=== PATIENT | female | born 1975 | race Caucasian/White ===

== ENCOUNTER 2023-07-15 11:20 | Outpatient (AMB) | payer OTHER, SELFPAY ==
--- NOTE | 2023-07-15 11:26 | MHC.OFFVIS ---
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 States numbness increases and interferes with her sleep. Symptoms started about 4 yrs ago but has worsen in the last 3 weeks. Patient has tried CTS injection about 4 years with good results. States she h ad a brace but it was worn out. No EMG done. Allergies No Known Allergies Allergy (Verified 07/15/23 11:31) Medication List - Last Reconciled 07/15/23 by Glenna Ferguson MD No Known Home Meds HPI HPI Comments History of Present Illness Details At least 4 years. worse numbness on 2nd-4th fingers. No numbness on 5th digit. She also has neck pain, been going to chiropractor on/off. 2 weeks ago, she had severe pain on right hand and at same time she also had severe neck pain. It resolved by going to chiropractor and rest. Treatment done so far: Tried brace long time ago, does not have any NSAIDs - Motrin therapy - none injection - long time ago, 5 years ago, Dr. Kaur, worked for a long time surgery - none [facility] Medical History (Updated 07/15/23 @ 11:48 by Glenna Ferguson MD) Carpal tunnel syndrome of right wrist Social History (Updated 07/15/23 @ 11:31 by Katrina Samuels [facility]) Current occupational status: employed Current occupation: rt hand/ packing Review of Systems Const All systems reviewed & are unremarkable except as noted in HPI and below Physical Exam Vital Signs: BMI result Body Mass Index 26.4 Constitutional: Patient appears to be in no acute distress, well nourished and well developed. MSK: Inspection reveals appropriate head and neck positioning. No pain with palpation over the neck musculature. Cervical ROM was full. Spurling's sign negative. Bilateral shoulder ROM WNL. No ligamentous laxity or crepitance. No increased effusion. Hawkin's test is negative. No joint effusion noted. No deformity noted. No intrinsic hand weakness noted. No atrophy noted. Rafal test negative. Carpal compression test positive right wrist. Tinel sign positive right wrist. Strength is 5/5 in all muscle groups tested. No increased tone noted. Neurological: Neurologic examination of the upper and lower extremities was nonfocal with intact sensation, muscle stretch reflexes and without focal motor deficits . Goodson?s negative bilaterally Gait is non-antalgic without loss of balance. Results Reviewed Results Reviewed: No past imaging records or available for review Assessment & Plan Assessment & Plan (1) Carpal tunnel syndrome of right wrist: Code(s): G56.01 - Carpal tunnel syndrome, right upper limb Plan: Her symptoms are suggestive of Carpal Tunnel Syndrome. No EMG done yet. Prior to any further procedures such as injection or consideration of surgery, it would be prudent to do NCS/EMG. Patient is eager to proceed. We will schedule. In the meantime, we will provide wrist splint for use at night. Plan Assessment and plan discussed with patent, and patient was agreeable. All questions were answered thoroughly. Orders: Orders NE electromyogram (EMG) Today G56.01 - Carpal tunnel syndrome, right upper limb NE nerve conduction velocity Today G56.01 - Carpal tunnel syndrome, right upper limb Coding Level of Care Code New Pt Level 3 (57846) Diagnoses Carpal tunnel syndrome of right wrist G56.01
[2023-07-15 11:31] VITALS: BMI 26.4
== END 2023-07-15 12:09 | disposition home or self-care (01) ==
PROVIDERS: PCP Nurse Practitioner Family; Visit Provider Physical Medicine & Rehabilitation
DX: G56.01 Carpal tunnel syndrome, right upper limb (principal)
CPT/HCPCS: 99203

== ENCOUNTER → 2023-07-15 11:20 | Outpatient (BNVA) | payer OTHER, SELFPAY | PROVIDERS: PCP Nurse Practitioner Family; Visit Provider Physical Medicine & Rehabilitation ==

== ENCOUNTER 2023-08-13 09:54 | Outpatient (REF) | payer OTHER, SELFPAY ==
--- NOTE | 2023-08-13 09:59 | EMG_ITS ---
Chief complaint: Was having right hand pain/numbness. It has already gotten better with use of wrist splints at night. Reason for referral: Evaluate for Carpal Tunnel Syndrome Procedure done: Right upper extremity NCS/EMG Precautions and/or limitations: None The limb temperature was monitored continuously and remained between 32-36 degrees C during the performance of the NCS. Nerve Conduction Studies Anti Sensory Summary Table ?Stim Site NR Onset (ms) Norm Onset (ms) Peak (ms) Norm Peak (ms) O-P Amp (?V) Norm O-P Amp Site1 Site2 Delta-0 (ms) Dist (cm) Don (m/s) Norm Don (m/s) Right Median Anti Sensory (2nd Digit) Wrist ? 3.9 4.9 <3.6 10.4 >10 Wrist 2nd Digit 3.9 14.0 36 Right Radial Anti Sensory (Thumb) Forearm ? 1.7 2.1 <3.1 11.6 Forearm Thumb 1.7 0.0 Right Ulnar Anti Sensory (5th Digit) Wrist ? 2.2 2.8 <3.7 40.8 >15.0 Wrist 5th Digit 2.2 14.0 64 Motor Summary Table ?Stim Site NR Onset (ms) Norm Onset (ms) O-P Amp (mV) Norm O-P Amp iAmp (mV) Amp (1st) (%) Site1 Site2 Delta-0 (ms) Dist (cm) Don (m/s) Norm Don (m/s) Right Median Motor (Abd Poll Brev) Wrist ? 6.2 <3.9 3.3 >4.5 4.1 100.0 Elbow Wrist 1.6 17.5 109 >45 Elbow ? 7.8 3.1 3.9 93.9 Right Ulnar Motor (Abd Dig Minimi) Wrist ? 2.5 <3.0 11.1 >5 13.5 100.0 B Elbow Wrist 2.7 16.0 59 >45 B Elbow ? 5.2 10.2 12.8 91.9 A Elbow B Elbow 1.4 10.0 71 >45 A Elbow ? 6.6 10.2 12.9 91.9 EMG ?Side Muscle Nerve Root Ins Act Fibs Psw Amp Dur Poly Recrt Int Pat Comment Right 1stDorInt Ulnar C8-T1 Nml Nml Nml Nml Nml 0 Nml Complete Right FlexCarRad Median C6-7 Nml Nml Nml Nml Nml 0 Nml Complete Right Biceps Musculocut C5-6 Nml Nml Nml Nml Nml 0 Nml Complete Right Triceps Radial C6-7-8 Nml Nml Nml Nml Nml 0 Nml Complete Right Deltoid Axillary C5-6 Nml Nml Nml Nml Nml 0 Nml Complete FINDINGS: Right median motor nerve showed prolonged distal latency, small amplitude and normal conduction velocity. Right median sensory nerve showed prolonged peak latency. All other nerves tested were within normal. Concentric needle EMG was performed in selected muscles of the right upper extremity. Study did not reveal signs of electric abnormalities as shown in the table below. IMPRESSION: 1. This is an abnormal study. 2. There is electrodiagnostic evidence for right moderate-severe median neuropathy at the wrists, consistent with carpal tunnel syndrome. 3. There is no electrodiagnostic evidence for ulnar neuropathy, brachial plexopathy, or cervical radiculopathy. CLINICAL COMMENT: Since she is already feeling better with the use of wrist splints, she would like to observe further before deciding on surgery versus injection. She will call our physiatry office when needed. Thank you for your kind referral. Glenna Ferguson MD, [place] Board Certified, [place] Board of Physical Medicine and Rehabilitation (ABPMR) Board Certified, [place] Board of Electrodiagnostic Medicine (ABEM) [place] [id number] [facility]
== END 2023-08-13 09:55 | disposition home or self-care (01) ==
LOC: HO.NEURO 09:54
PROVIDERS: PCP Internal Medicine; Visit Provider Physical Medicine & Rehabilitation
DX: G56.01 Carpal tunnel syndrome, right upper limb (principal)
CPT/HCPCS: 95886; 95909

== ENCOUNTER → 2023-08-13 09:59 | Outpatient (BNV) | payer OTHER, SELFPAY | PROVIDERS: PCP Internal Medicine; Visit Provider Physical Medicine & Rehabilitation | DX: G56.13 Other lesions of median nerve, bilateral upper limbs (principal); G56.03 Carpal tunnel syndrome, bilateral upper limbs | CPT/HCPCS: 95886; 95909 ==

== ENCOUNTER 2023-08-30 09:43 | Outpatient (AMB) | payer OTHER, SELFPAY ==
--- NOTE | 2023-08-30 11:27 | MHC.OFFWIV ---
Intake Vital Signs 08/30/23 11:33 Weight 138 lb 4 oz BP 128/72 Blood Pressure Location Lt brachial Position Sitting Pulse 68 Pulse Source Pulse Oximeter Temp 98.1 F Temp Source Oral Pulse Oximetry (%) 98 Oxygen Delivery Method Room Air Intake Visit Reasons: EP, sore throat, ear pain (413- Allergies No Known Allergies Allergy (Verified 07/15/23 11:31) Medication List - Last Reconciled 08/30/23 by Abiel Fleming MD azithromycin (Zithromax) take 500 mg today (day 1), then 250 mg for 4 days (days 2-5) PO HPI EP, sore throat, ear pain ([phone] HPI Details Patient presents for a sick visit. Reporting symptoms of sinus congestion, sore throat and difficulty swallowing. Low-grade fever. No family member is sick. No recent travel. Patient reports symptoms of malaise and fatigue. [facility] Medical History Carpal tunnel syndrome of right wrist Social History Current occupational status: employed Current occupation: rt hand/ packing Physical Exam Vital Signs: Last Vital Signs Temp 98.1 F 08/30/23 11:33 Pulse 68 08/30/23 11:33 BP 128/72 08/30/23 11:33 Pulse Ox 98 08/30/23 11:33 Oxygen Delivery Method Room Air 08/30/23 11:33 Const General: cooperative and healthy appearing Nutritional Appearance: well nourished Orientation/consciousness: patient oriented x3 Limitations: no limitations HEENT Head: Yes normal to inspection Eyes General: appearance normal, both eyes and all related structures Neck Neck: Yes normal visual inspection Chest Chest palpation & inspection: normal palpation of entire chest wall Resp Effort & Inspection: normal respiratory effort Neuro General: patient oriented x3 Results AMB Rapid Strep AMB Rapid Strep Negative Last Edit by ASHLEY Jiménez on 08/30/23 11:41 Results Reviewed Results Reviewed: Laboratory Last Values Strep Scn Rapid Clinic Negative 08/30/23 11:37 Assessment & Plan Assessment & Plan (1) Upper respiratory tract infection: Code(s): J06.9 - Acute upper respiratory infection, unspecified Qualifiers: URI type: unspecified viral URI Qualified Code(s): J06.9 - Acute upper respiratory infection, unspecified Plan: Antibiotics ordered. Increase fluid intake. Tylenol for aches and pains. If symptoms worsen, follow-up here for a recheck. Orders: Orders AMB Rapid Strep Screen Today Z13.9 - Encounter for screening, unspecified PHILIPP Juarez Medications: New azithromycin (Zithromax) take 500 mg today (day 1), then 250 mg for 4 days (days 2-5) PO 6 tabs 0RF Abiel Fleming MD Coding Level of Care Code Est Pt Level 3 (01820) Diagnoses Viral upper respiratory tract infection J06.9 URI type: unspecified viral URI
[2023-08-30 11:33] VITALS: BP 128/72; PULSE 68; TEMP 36.7; O2SAT 98
== END 2023-08-30 12:13 | disposition home or self-care (01) ==
PROVIDERS: PCP Internal Medicine; Visit Provider Internal Medicine
DX: Z13.9 Encounter for screening, unspecified (principal); J06.9 Acute upper respiratory infection, unspecified
CPT/HCPCS: 87880; 99213

== ENCOUNTER 2025-06-19 07:07 | Outpatient (AMB) | payer BC, SELFPAY ==
--- OUTSIDE RECORDS SUMMARY | 2025-06-19 07:09 | XMS_ITS | Clinical Summary ---
Author Organization [facility] Address [address] [phone] Phone Care Team Providers Care [employer] Name Role Phone Unavailable Primary Care Provider Unavailabl e Medications ibuprofen (MOTRIN IB) 200 MG tablet Take 1 tablet by mouth every 6 (six) hours as needed. Active albuterol (PROAIR HFA) 90 mcg/actuation inhaler 2 puffs as needed Inhalation every 4 hrs PRN 7 Active tiZANidine (ZANAFLEX) 4 MG tablet 1 tablet as needed Orally HS PRN headache 7 Active POLYETHYLENE GLYCOL 3350 (MIRALAX ORAL) daily Orally Once daily PRN Active DOCUSATE SODIUM (STOOL SOFTENER ORAL) 1 capsule as needed Orally 1 EVERY 2 DAYS Active Family History Medical History Relation Comments Ulcers Brother 1 Brain tumor Brother 2 Diabetes mellitus Mother Liver disease Mother Other Mother joint/muscle pro blems Cancer Sibling Relation Status Comments Brother 1 Alive Brother 2 Mother Alive Sibling Social History Tobacco Use Types Packs/Day Years Used Date Smoking Tobacco: Never Assessed Education Answer Date Recorded Are you interested in more education? Not on luis miguel e 03/12/2023 Are you concerned about learning? Not on file 03/12/2023 No 03/12/2023 No 03/12/2023 Digital Access Answer Date Recorded No 04/12/2023 No 04/12/2023 Reliable internet access at home? Not on file 04/12/2023 Device with a working camera? Not on file Comments Unknown Sex and Gender Information Value Date Recorded Sex Assigned at Not on file Legal Sex Female 9:31 PM EDT Gender Identity Not on file Sexual Orientation Not on file Last Filed Vital Signs Vital Sign Reading Time Taken Comments Blood Pressure 118/80 03/23/2017 10:13 AM EDT Pulse 80 03/23/2017 10:13 AM EDT Temperature 36.6 C (97.9 F) 03/23/2017 10:13 AM EDT Respiratory Rate 16 03/23/2017 10:13 AM EDT Oxygen Saturation - - Inhaled Oxygen Concentration - - Weight 61.4 kg (135 lb 6.4 oz) 03/23/2017 10:13 AM EDT Height 151.1 cm (4' 11.5 ) 03/23/2017 10:13 AM E DT Body Mass Index 26.89 03/23/2017 10:13 AM EDT Plan of Treatment Health Maintenance Due Date Last Done Comments Adult Td,Tdap Booster 1973 DEPRESSION SCREENING 1985 SMOKING Hx and SMOKELESS TOBACCO SCREENING 1986 HEPATITIS C SCREENING 1991 HIV ONE-TIME SCREENING (18-6 5 YEARS) 1991 PAP SMEAR 1994 COLOGUARD 2018 FIT TEST 2018 FOBT 2018 SIGMOIDOSCOPY 2018 VIRTUAL COLONOSCOPY 2018 LIPID PANEL 01/12/2019 01/12/2014 MAMMOGRAM 12/10/2019 12/10/2017, 02/14/2016 PNEUMOCOCCAL VACCINES (50+ years) (1 of 1 - PCV) 2023 ZOSTER VACCINES (1 of 2) 2023 COVID-19 VACCINE ( - 2023-2 5 season) 2024 COLONOSCOPY 08/09/2025 08/09/2015 COLORECTAL CANCER SCREENING 08/09/2025 HEPATITIS A VACCINES Aged Out No long er eligible based on patient's age to complete this topic HIB VACCINES Aged Out No longer eligi ble based on patient's age to complete this topic MENINGOCOCCAL VACCINES (ACWY) Aged Out No longer eligible based on patient's age to complete this topic MENINGOCOCCAL VACCINES (B) Aged Out N o longer eligible based on patient's age to complete this topic Medical Devices Not on file Procedures Procedure Name Priority Date/Time Associated Diagnosis Comments HM MAMMOGRAPHY Routine 12/10/2017 OUTSIDE LDL Routine 01/12/2014 from Last 3 Months or Most Recently Relevant to Health Maintenance Results * MAMMOGRAPHY FOR RESULT ENTRY ONLY (12/10/2017) us Historical Provider HEALTH MAINTENANCE Final Result * Outside LDL (01/12/2014) LDL - External 76 50 - 250 mg/ml us Historical Provider LAB BLOOD ORDERABLES Lian l Result from Last 3 Months or Most Recently Relevant to Health Maintenance Additional Source Comments The information contained in this document represents components of the legal health record. It is not the complete legal health record.[facility]
[2025-06-19 07:17] VITALS: BP 122/80; PULSE 76; TEMP 36.7; O2SAT 99; BMI 27.7
--- NOTE | 2025-06-19 07:17 | AM.OFFWIN_ITS ---
Intake Vital Signs 06/19/25 07:17 Height 5 ft Weight 142 lb BMI 27.7 BP 122/80 Blood Pressure Location Rt brachial Position Sitting Pulse 76 Pulse Source Pulse Oximeter Temp 98.0 F Temp Source Oral Pulse Oximetry (%) 99 Oxygen Delivery Method Room Air Intake Visit Reasons: EP-lt ear infection Intake Note: presents with a painful, swollen, hot and red left ear s/p piercing 5 days ago Allergies No Known Allergies Allergy (Verified 06/19/25 07:19) Do you need a note to return to daycare/school/sports/work: Yes HPI HPI Comments History of Present Illness Details History - The patient is a 49-year-old female pr esenting with a left ear lobe infection. - The infection began 4 days ago after e ar piercing. - Symptoms include pain, swelling, and w armth. - No fever or drainage reported. - Daily cleaning of the piercing site moreau s been maintained. - The piercing was performed in [place] ; no follow-up with the shop has occurred. - last tdap 02/03/24 per records Physical Exam General: Cooperative, healthy appearing, comfortable, no acute distress and well developed Orientation: Patient oriented x3 Limitations: No limitations Head: Normal to inspection Ears: Hearing grossly normal bilaterally, left ear helix has piercing in place with purulent drainage, surrounding erythema, edema and warmth Nose: Normal External nose present Face and sinus: Normal facial exam Mouth: normal, moist oral mucosa Eyes: Appearance normal, both eyes and all related structures Neck: Normal visual inspection and Yes full ROM Respiratory: Normal respiratory effort and able to speak in complete sentences. Skin: no rashes or lesions noted Neuro: Patient oriented x3 Extremities: moving all extremities normally [facility] Medical History Carpal tunnel syndrome of right wrist Social History Current occupational status: employed Current occupation: rt hand/ packing Review of Systems Const All systems reviewed & are unremarkable except as noted in HPI and below Physical Exam Vital Signs: Last Vital Signs Temp 98.0 F 06/19/25 07:17 Pulse 76 06/19/25 07:17 BP 122/80 06/19/25 07:17 Pulse Ox 99 06/19/25 07:17 Oxygen Delivery Method Room Air 06/19/25 07:17 BMI result Body Mass Index 27.7 Office Procedures AMB Foreign Body Removal Details: removed ear piercing from helix of left ear, scant purulence and some serousanginous fluid noted, cleaned with alcohol wipes Foreign Body Removal Simple: [id number], simple Procedure code (CPT) selection complete Assessment & Plan Assessment & Plan (1) Perichondritis of left ear: Code(s): H61.002 - Unspecified perichondritis of left external ear Plan: Plan Patient was informed and verbally consented to the use of an ambient scribe for clinic note documentation during this visit - removed the piercing. - Sent Cipro 500mg BID x10 days, counseled patient that she can stop this medica tion after 7 days if the infection has cleared up. - sent a wound culture - keep it clean using alcohol wipes several times daily - counseled patient on the small chance of endocarditis developing from this piercing infection, gave her the signs and symptoms and told her that while the likelihood is low, there is a chance and she should be aware of the signs and symptoms and go to the emergency department if she notices these developing, ISAURA. - Tetanus is up to date Orders: Orders AMB Removal of foreign body Today H61.002 - Unspecified perichondritis of left external ear Routine Culture w Gram Stain Today H61.002 - Unspecified perichondritis of left external ear Medications: New ciprofloxacin HCl 500 mg (2 x 250 mg) PO Q12H 40 tabs 0RF 10 days Coding Level of Care Code New Pt Level 4 (98591) Diagnoses Perichondritis of left ear H61.002 CPT Codes Details - Foreign body simple: [id number], simple ([id number])
== END 2025-06-19 08:02 | disposition home or self-care (01) ==
PROVIDERS: PCP Internal Medicine; Visit Provider Physician Assistant
DX: H61.002 Unspecified perichondritis of left external ear (principal)

== ENCOUNTER 2025-06-19 07:07 | Outpatient (REF) | payer BC, SELFPAY | END 2025-06-19 07:08 | disposition home or self-care (01) | LOC: HO.LAB 07:07 | PROVIDERS: PCP Internal Medicine | DX: H61.002 Unspecified perichondritis of left external ear (principal) | CPT/HCPCS: 10120; 87070; 87077; 87186; 87205 ==

== ENCOUNTER 2025-09-19 09:03 | Outpatient (AMB) | payer BC, SELFPAY ==
--- NOTE | 2025-09-19 09:08 | MHC.OFFWIV ---
Intake Vital Signs 09/19/25 09:09 Height 5 ft Weight 142 lb BMI 27.7 BP 118/70 Blood Pressure Location Lt brachial Position Sitting Pulse 79 Pulse Source Pulse Oximeter Temp 97.9 F Temp Source Oral Pulse Oximetry (%) 99 Oxygen Delivery Method Room Air Intake Visit Reasons: EP-abdominal pain, vomiting, chills Intake Note: pt presents with vomiting, abdominal pain and body chills since last night Allergies No Known Allergies Allergy (Verified 09/19/25 09:15) Do you need a note to return to daycare/school/sports/work: Yes HPI HPI Comments History of Present Illness Details History of Present Illness - The patient is a 50-year-old female presenting with abdominal pain and vomiting. - Symptoms began after consuming a burrito yesterday at lunchtime from [employer]. - She states that she does not usually eat at [employer]. - She states that she started with abd pain at around 6 pm. - She was having nausea and vomited up acid twice this am. - She did not vomit up any food. - She has not had a bowel movement since yesterday morning, before eating the burrito. - Attempts to alleviate symptoms with acetaminophen and MiraLax were unsuccessful. - No associated chest pain, shortness of breath, or hematemesis reported. - She has no acid reflux, burning, diarrhea, melena, hematochezia, CP, SOB, fever, or chills. Physical Exam General: Cooperative, healthy appearing, comfortable, no acute distress and well developed Orientation: Patient oriented x3 Limitations: No limitations Respiratory: Normal respiratory effort and able to speak in complete sentences. Clear to auscultation bilaterally. No w/r/r noted. Cardiovascular: Regular rate and rhythm. Normal S1 and S2. No m/r/g noted. GI: Hypoactive BS noted. Soft to palpation and TTP in the LLQ. No guarding or rebound tenderness noted. Neg Rovsing and [place] noted. Negative CVA tenderness noted. Skin: No rashes or lesions noted Patient was informed and verbally consented to the use of an ambient scribe for clinic note documentation during this visit [facility] Medical History Carpal tunnel syndrome of right wrist Social History Current occupational status: employed Current occupation: rt hand/ packing Physical Exam Vital Signs: Last Vital Signs Temp 97.9 F 09/19/25 09:09 Pulse 79 09/19/25 09:09 BP 118/70 09/19/25 09:09 Pulse Ox 99 09/19/25 09:09 Oxygen Delivery Method Room Air 09/19/25 09:09 BMI result Body Mass Index 27.7 Assessment & Plan Assessment & Plan (1) Abdominal pain: Code(s): R10.9 - Unspecified abdominal pain Qualifiers: Abdominal location: lower abdomen, unspecified Qualified Code(s): R10.30 - Lower abdominal pain, unspecified (2) Constipation: Code(s): K59.00 - Constipation, unspecified Qualifiers: Constipation type: unspecified constipation type Qualified Code(s): K59.00 - Constipation, unspecified Plan Most likely constipation vs gastritis vs obstruction? It is unlikely food poisoning plan - Drink lots of fluids. - MiraLax and Colace prescribed to alleviate constipation-related abdominal pain. - Advised bland diet and increased hydration to promote bowel movement. - Follow-up recommended if no improvement and possible ER evaluation to exclude bowel obstruction. Medications: New polyethylene glycol 3350 (Miralax) 17 grams PO DAILY 119 grams 0RF sennosides-docusate sodium 8.6-50 mg (Colace 2-In-1) 1 tab-cap PO BEDTIME 20 tabs 0RF Coding Level of Care Code Est Pt Level 3 (91395) Diagnoses Lower abdominal pain R10.30 Abdominal location: lower abdomen, unspecified Constipation, unspecified constipation type K59.00 Constipation type: unspecified constipation type
[2025-09-19 09:09] VITALS: BP 118/70; PULSE 79; TEMP 36.6; O2SAT 99; BMI 27.7
--- OUTSIDE RECORDS SUMMARY | 2025-09-19 09:38 | XMS_ITS | Clinical Summary ---
Author Organization [facility] Address [address] [phone] Phone Care Team Providers Care [employer] Name Role Phone Unavailable Primary Care Provider [...] 2023 ZOSTER VACCINES (1 of 2) 2023 INFLUENZA VACCINE (#1) 2025 COVID-19 VACCINE (1 - 2024-2 6 season) 2025 COLONOSCOPY 08/09/2025 08/09/2015 COLORECTAL CANCER SCREENING 08/09/2025 RSV VACCINE (1 - 1-dose 75+ series) 2048 HEPATITIS A VACCINES Aged Out No long [...] Procedure Name Priority Date/Time Associated Diagnosis Comments MAMMOGRAPHY Routine 12/10/2017 OUTSIDE LDL Routine 01/12/2014 [...] It is not the complete legal health record.[facility]
--- OUTSIDE RECORDS SUMMARY | 2025-09-19 09:38 | XMS_ITS | Clinical Summary ---
Author Organization [facility] [address] [place] [address] Address [address], [place] Phone Care Team Providers Care Therapy Tech Name Role Phone Wesley Garcia MD Primary Care Provider [phone] Allergies No known active allergies Medications albuterol HFA (Proventil HFA) 90 mcg/actuation inhaler Inhale 2 puffs by mouth every 4 (four) hours if needed for wheezing or shortness of breath. 6.7 g 5 02/01/20 26 Active fluticasone propionate (FLONASE) 50 mcg/actuation nasal spray SHAKE, PRIME, SPRAY TWICE IN EACH NOSTRIL DAILY CLEAN TIP AND REPLACE TOP 16 g 5 Active Active Problems Problem Noted Date Diagnosed Date ERIN (obstructive sleep apnea) 04/06/2025 GERD (gastroesophageal reflux disease) 1 Alopecia areata 09/14/2012 Encounters Date Type Department Care Team Description 07/10/2025 10:30 AM EDT Office Visit Adult Medicine [facility] [address] [place] [address] Wesley Garcia MD Neck pain (Primary Dx); Gastroesophageal reflux disease without esophagitis; Encounter for screening mammogram for malignant neoplasm of breast from Last 3 Months Immunizations Immunization Administration Dates Next Due Influenza Quadravalent, MDCK , 0.5ml, preservative free (Flucelvax) 6mo and older 01/27/2019 Moderna SARS-CoV-2 COVID-19, mRNA, LNP-S, preservative free 11/12/2021 Tdap Tetanus diptheria acell ular pertussis (Boostrix; Adacel) 7yo and older 01/21/2018 Surgical History Surgery Date Site/Laterality Comments TUBAL LIGATION 2000 OTHER SURGICAL HISTORY RADIAL KERATOTOMY; COMMENT: right eye COLONOSCOPY 06/2022 Medical History Medical History Date Comments Alopecia areata 09/14/2012 Premature ovarian failure age 35 yo GERD (gastroesophageal reflux disease) 08/15/2021 Family History Medical History Relation Name Comments Brain cancer Brother 45 Hypertension Father stroke Hypertension Maternal Grandmother Hypertension Mother diabetes, asthm a Brain cancer Paternal Grandmother Breast cancer Neg Hx Colon cancer Neg Hx Ovarian cancer Neg Hx Uterine cancer Neg Hx Relation Name Status Comments Brother Father Other Maternal Grandfather Maternal Grandmother Alive Mother Alive Paternal Grandfather Alive Paternal Grandmother Alive Social History Tobacco Use Types Packs/Day Years Used Date Smoking Tobacco: Former Cigarettes Q uit: 05/15/2008 Smokeless Tobacco: Former Tobacco Cessation:Counseling Given: Not Answered Alcohol Use Standard Drinks/Week Comments Yes 0 (1 standard drink = 0.6 oz pur e alcohol) Housing Instability Answer Date Recorde d Are you worried that in the next 2 months you may not have stable housing? No 01/30/2025 Food Access & Nutrition Answer Date Rec orded Do you have access to a vari ety of food including fruits and vegetables? Yes 01/30/2025 Access to Healthcare Answer Date Record ed Within the last 3 months, ho w many times did you visit the emergency department for your medical care? 0 01/30/2025 Health Literacy Answer Date Recorded How often do you need to hav e someone help you when you read instructions, pamphlets, or other written material from your doctor or pharmacy? Never 01/30/2025 Caregiver: How often do you need to have someone help you when you read instructions, pamphlets, or other written material from your doctor or pharmacy? Not on file 01/30/2025 Financial Risk Answer Date Recorded How hard is it for you to pa y for the very basics like food, housing, medical care, and air conditioning / heating? Not very hard 01/30/2025 Transportation Answer Date Recorded Has the lack of transportati on kept you from meetings, work, or from getting things needed for daily living? No Has the lack of transportati on kept you from medical appointments or from getting medications? No 01/30/2025 Social Isolation Answer Date Recorded How often do you feel lonely or isolated from th ose around you? Never 01/30/2025 Food Risk Answer Date Recorded Within the past 12 months we worried whether our food would run out before we got money to buy more. Never true 01/30/2025 Within the past 12 months th e food we bought just didn't last and we didn't have money to get more. Never true 01/30/2025 Dependent Care Answer Date Recorded Do you need help finding or paying for care for your loved ones. For example, child psychiatrist or elderly care for an older adult? No 01/30/2025 Education Answer Date Recorded Do you think completing more education or training, like finishing a GED, going to college, or learning a trade, would be helpful for you? No 01/30/2025 Employment and Income Answer Date Recor ded During the last four weeks, have you been actively looking for work? No 01/30/2025 Living Situation Answer Date Recorded What is your living situation? Unrecognized valu e 01/30/2025 Comments Unknown Sex and Gender Information Value Date Recorded Sex Assigned at Female 11/20/2024 4:09 PM EST Legal Sex Female 12:21 AM EST Gender Identity Female 11/20/2024 4:09 PM EST Sexual Orientation Not on file Obstetrics History Last Filed Vital Signs Vital Sign Reading Time Taken Comments Blood Pressure 110/68 07/10/2025 10:23 AM EDT Pulse 71 07/10/2025 10:23 AM EDT Temperature 35.9 C (96.7 F) 07/10/2025 10:23 AM EDT Respiratory Rate 14 07/10/2025 10:23 AM EDT Oxygen Saturation 98% 07/10/2025 10:23 AM EDT Inhaled Oxygen Concentration - - Weight 64.9 kg (143 lb) 07/10/2025 10:23 AM EDT Height 152.4 cm (5') 07/10/2025 10:23 AM EDT Body Mass Index 27.93 07/10/2025 10:23 AM EDT Plan of Treatment Upcoming Encounters Date Type Department Care Team ([facility] st Contact Info) Description 09/21/2025 10:00 AM EST Ancillary Procedure Pulmonology - [place] [address] [facility] [address] [place] [address] 09/21/2025 11:00 AM EST Office Visit Pulmonology [facility] [address] [facility] [address] [place] [phone] Aminta Earl MD [address] [place] [phone] Health Maintenance Due Date Last Done Comments Colorectal Cancer Screening: Colonoscopy 1975 Hepatitis B Vaccines (1 of 3 - 19+ 3-dose series) 1992 Cervical Cancer Screening: HPV 1994 HIV Screening 10/24/2022 Hepatitis C Screening 10/24/2022 Pneumococcal Vaccine: 50+ Years (1 of 1 - PCV) 2023 Zoster Vaccines (1 of 2) 2023 COVID-19 Vaccine (3 - 2024- season) 2025 11/12/2021, 02/18/2021 Influenza Vaccine (#1) 2025 01/27/2019 Social Influencers of Health Screening 01/30/2026 01/30/2025 Breast Cancer Screening 07/07/2026 07/07/20 24, 02/12/2023, 02/27/2022, Additional history exists Cholesterol Screening (Lipid Panel) 07/19/2029 07/19/2024 DTaP,Tdap,and Td Vaccines (3 - Td or Tdap) 02/02/2034 02/03/2024, 01/21/2018 RSV Immunization Adult Patients (1 - 1-dose 75+ series) 2048 Depression Screening Completed 01/30/2025 HIB Vaccines Aged Out No longer eligi ble based on patient's age to complete this topic HPV Vaccines Aged Out No longer eligi ble based on patient's age to complete this topic Hepatitis A Vaccines Aged Out No long er eligible based on patient's age to complete this topic IPV Vaccines Aged Out No longer eligi ble based on patient's age to complete this topic MMR Vaccines Aged Out No longer eligi ble based on patient's age to complete this topic Meningococcal ACWY Vaccine Aged Out N o longer eligible based on patient's age to complete this topic Meningococcal B Vaccine Aged Out No l onger eligible based on patient's age to complete this topic RSV Immunization Patients Under 20 months Aged Out No longer eligible based on patient's age to complete this topic Varicella Vaccines Aged Out No longer eligible based on patient's age to complete this topic Procedures Procedure Name Priority Date/Time Associated Diagnosis Comments [facility] SCREENING DIGITAL Routine 07/07/2024 3:10 PM EDT Encounter for screening mammogram for malignant neoplasm of breast from Last 3 Months or Most Recently Relevant to Health Maintenance Results * [facility] SCREENING DIGITAL (07/07/2024 3:10 PM EDT) Anatomical Region Laterality Modality Mammography 07/07/2024 1:40 PM EDT Narrative 07/07/2024 3:10 PM EDT [facility] Diagnostic Imaging Department [address] [place] [id number] Patient: JESUS MANUELSAUMYA /Age/Sex: 1975 - 48 - F Unit#: [id number] Location/Status: [facility] CLI Mnemonic/Ordering Site: DIGSC/SPMAM Ordering Physician: WESLEY GARCIA MD [facility] Screening Digital - 07/07/24 - 1358 Report Status:Signed EXAM: [facility] Screening Digital EXAM DATE AND TIME: 07/07/2024 2:00 PM HISTORY: Screening. 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 COMPARISON: 04/27/22, 02/27/22, 02/06/22, 02/05/22, 11/05/20, 01/13/19, 12/10/17 TECHNIQUE: Bilateral digital breast tomosynthesis was performed in the CC and MLO projections. Computer aided detection with LocalSort 3D 3.1 was employed. TISSUE DENSITY: b. There are scattered areas of fibroglandular density. FINDINGS: No suspicious masses, grouped microcalcifications, or areas of architectural distortion are seen. A circumscribed subcentimeter nodule in the anterior left breast is unchanged from priors, considered benign. The skin and vascularity are unremarkable. IMPRESSION: No mammographic evidence of malignancy is seen. A negative mammogram in the presence of a clinically suspicious palpable abnormality does not preclude the possibility of malignancy or alter the indications for biopsy. BI-RADS: Category 2: Benign RECOMMENDATION(S): 1: Routine screening mammogram BILATERAL in 1 year. Dictating Physician: LESIA BOLDEN MD Electronically Signed by: LESIA BOLDEN MD Dic Date/Time: 07/07/24 1509 Sign date/Time: 07/07/24 1510 Procedure Note Lesia Bolden MD - 08/30/2024 [facility] Diagnostic Imaging Department [address] [place] [id number] Patient: JESUS MANUELSAUMYA /Age/Sex: 1975 - 48 - F Unit#: [id number] Location/Status: SPDIMA/REG CLI Mnemonic/Ordering Site: [facility] Ordering Physician: WESLEY GARCIA MD [facility] Screening Digital - 07/07/24 - 1358 Report Status:Signed EXAM: [facility] Screening Digital EXAM DATE AND TIME: 07/07/2024 2:00 PM HISTORY: Screening. Excisional biopsy of the right breast in 2021yielding pseudoangiomatous stromal hyperplasia (PASH). COMPARISON: 04/27/22, 02/27/22, 02/06/22, 02/05/22, 11/05/20, 01/13/19,12/10/17 TECHNIQUE: Bilateral digital breast tomosynthesis was performed in the CCand MLO projections. Computer aided detection with LocalSort 3D 3.1was employed. TISSUE DENSITY: b. There are scattered areas of fibroglandular density. FINDINGS: No suspicious masses, grouped microcalcifications, or areas ofarchitectural distortion are seen. A circumscribed subcentimeter nodule in the anteriorleft breast is unchanged from priors, considered benign. The skin andvascularity are unremarkable. IMPRESSION: No mammographic evidence of malignancy is seen. A negative mammogram in the presence of a clinically suspicious palpable abnormality does not preclude the possibility of malignancy or alter the indications for biopsy. BI-RADS: Category 2: Benign RECOMMENDATION(S): 1: Routine screening mammogram BILATERAL in 1 year. Dictating Physician: LESIA BOLDEN MD Electronically Signed by: LESIA BOLDEN MD Dic Date/Time: 07/07/24 1509 Sign date/Time: 07/07/24 1510 Wesley Garcia MD IMG BI PROCEDURES Final Result from Last 3 Months or Most Recently Relevant to Health Maintenance Insurance [facility] Care Teams Therapy Tech Relationship Specialty Start Date End Date Wesley Garcia MD [address] [place] [phone] PCP - General Internal Medicine 06/09/21
== END 2025-09-19 09:34 | disposition home or self-care (01) ==
PROVIDERS: PCP Internal Medicine; Visit Provider Physician Assistant Medical
DX: R10.30 Lower abdominal pain, unspecified (principal); K59.00 Constipation, unspecified

== ENCOUNTER 2025-09-19 16:40 | Inpatient (IN) | payer BC, SELFPAY ==
--- NOTE | ~2025-09-19 | CT_ITS ---
CLINICAL HISTORY: LLQ pain CT abdomen and pelvis with contrast Comparison: CT - CT ABDOMEN PELVIS W IV CON - 09/19/25 20:38 EST Findings: Dilated and fluid-filled appendix with wall thickening and adjacent inflammatory changes. Obstructing appendicolith near the appendiceal origin. Otherwise normal bowel and stomach. Small volume free fluid in the pelvis. Uterus and ovaries normal. Moderate hepatic steatosis. Otherwise normal liver, spleen, pancreas, and adrenal glands. Gallbladder and bile ducts normal. No significant abnormality of the kidneys, ureters, or urinary bladder. IMPRESSION: 1. Acute appendicitis. 2. Moderate hepatic steatosis. This document has been electronically signed by: Tarik Eli MD on 09/19/2025 22:00:43
[2025-09-19 16:44] VITALS: BP 168/82; PULSE 100; RESP 18; TEMP 37.4; O2SAT 99; BMI 27.7
--- NOTE | 2025-09-19 16:48 | ED.GENADULT ---
HPI - General Adult General Chief complaint: Abdominal Pain Stated complaint: Stomach Pain Time Seen by Provider: 09/19/25 20:04 Source: patient, RN notes reviewed and old records reviewed Mode of arrival: ambulatory Limitations: no limitations History of Present Illness ED Provider: Karthik CHAN narrative: A 50 year-old female with no PMH presents to the ED reporting lower abdominal pain that started around 8 pm last night with associated nausea and vomiting. Patient reports last bowel movement was at 6 pm last night but denies any blood in her stool or vomit. She describes the pain as a sharp, constant, 9/10 pain to which she took Tylenol and Miralax with no relief. She was seen earlier today at a walk-in for her symptoms and was advised to take Colace and Miralax to alleviate suspected constipation-related abdominal pain but she says the pain became increasingly worse prompting her to come to the ED. Patient has been unable to eat or drink anything today but denies any dizziness, chest pain, shortness of breath, or fevers/chills. Related Data Previous Rx's ?Medication ?Instructions ?Recorded polyethylene glycol 3350 17 17 g PO DAILY #119 grams 09/19/25 gram/dose oral powder (Miralax) sennosides 8.6 mg-docusate sodium 1 tab-cap PO BEDTIME #20 tabs 09/19/25 50 mg tablet (Colace 2-In-1) Allergies Allergy/AdvReac Type Severity Reaction Status Date / Time No Known Allergies Allergy Verified 09/19/25 16:45 Review of Systems Constitutional: Constitutional: Denies chills, Denies fever(s) and Reports poor appetite Cardiovascular: Cardiovascular: Denies chest pain, Denies lightheadedness and Denies dyspnea Respiratory: Respiratory: Denies dyspnea Gastrointestinal: Gastrointestinal: Reports abdominal pain, Denies hematochezia, Reports nausea, Reports vomiting and Denies hematemesis [facility] Past Medical History Medical History Carpal tunnel syndrome of right wrist Social History Social History Household Members: Spouse Housing: House Do you presently have visiting nurse or other home services: No Alcohol intake: current Alcohol intake frequency: holidays/special occasions only Comment: Mehreen BOWMAN Patient Tobacco Use Status: Never used Tobacco Smoked in Last 30 Days: No Use of substances other than those prescribed or required for medical reasons: No Have you been hit, kicked, punched, or otherwise hurt by someone within the past year? If so, by whom?: No Do you feel safe in your current relationship?: Yes Is there a partner from a previous relationship who is making you feel unsafe now?: No Are you made to feel afraid or neglected: No Advance Directives: No Advance Directives Information Provided: Yes Do you have a plan to hurt others: No Plan Recently lost weight without trying: No How much weight loss: Not applicable Eating poorly because of decreased appetite: No Nutrition screen score: 0 Nutrition Risks: No Nutritional Risk Patient : No : No Poor oral hygiene: No Current occupational status: employed Current occupation: rt hand/ packing Physical Exam ED Vital Signs: Vital Signs - 24 hr 09/19/25 16:44 09/19/25 18:56 09/19/25 21:59 Temperature 99.4 F 98.4 F 98.3 F Pulse Rate 100 102 H 84 Respiratory Rate 18 19 14 Blood Pressure 168/82 H 136/94 H 135/72 Pulse Oximetry 99 99 99 Oxygen Delivery Method Room Air Room Air Room Air BMI result Body Mass Index 27.7 Const General: cooperative, healthy appearing, comfortable and no acute distress Orientation/consciousness: patient oriented x3 Resp Effort & Inspection: normal respiratory effort Auscultation: clear to auscultation bilaterally Cardio Rhythm: regular rhythm GI Inspection: Yes normal to inspection and No distended Palpation (GI): Soft to palpation, not firm, Tenderness to palpation present (GI) in the LLQ and in the RLQ and Guarding due to palpation present (GI) in the LLQ; not in the RLQ Auscultation: normal bowel sounds Neuro General: patient oriented x3 Course Course Course Narrative: RME: 50 yold female presents to the ED For lower abdominal pain since last night with nausea. labs ordered. Reevaluation(s) Reevaluation #1: Received call from [employer] the patient actually has a acute uncomplicated appendicitis with a appendicolith. She is not septic, we will add on Zosyn for the obvious infection. I sent a tiger text message to the on-call surgeon for anticipated admission Time: 22:15 Reevaluation #2: Patient accepted to the general surgery service Time: 22:22 Medications Administered Generic Name Dose Route Start Last Admin Trade Name Freq PRN Reason Stop Dose Admin Lactated Ringer's 1,000 mls @ 125 mls/hr 09/19/25 22:30 09/20/25 04:02 Lr IVCONT 125 mls/hr .Q8H COURTNEY Administration Piperacillin Sod/Tazobactam 50 mls @ 100 mls/hr 09/20/25 04:00 09/20/25 04:29 Sod 3.375 gm/ Sodium Chloride IV Infused Q6H COURTNEY Infusion Morphine Sulfate 4 mg 09/19/25 22:34 09/20/25 02:48 Morphine Sulfate 4 Mg/Ml Cartridge IVPUSH 4 mg Q4H PRN Administration Pain, Severe (Pain Scale 7-10) Protocol Sodium Chloride 3 ml 09/20/25 00:00 09/20/25 02:48 0.9 % Sodium Chloride Flush 3 Ml Syringe IVFLUSH 3 ml QSHIFT COURTNEY Administration Discontinued Medications Generic Name Dose Route Start Last Admin Trade Name Freq PRN Reason Stop Dose Admin Sodium Chloride 1,000 mls @ 999 mls/hr 09/19/25 20:45 09/19/25 22:16 Ns IV 09/19/25 21:45 Infused .Q1H1M COURTNEY Infusion Piperacillin Sod/Tazobactam 50 mls @ 100 mls/hr 09/19/25 22:05 09/19/25 23:09 Sod 3.375 gm/ Sodium Chloride IV 09/19/25 22:34 Infused ONCE ONE Infusion Sodium Chloride 1,000 mls @ 999 mls/hr 09/19/25 22:15 09/19/25 23:50 Ns IV 09/19/25 23:15 Infused .Q1H1M COURTNEY Infusion Iohexol 100 ml 09/19/25 20:51 09/19/25 20:51 Iohexol 350 Mg/Ml 100 Ml Infus..Btl IV 09/19/25 20:52 85 ml ONCE ONE Administration Morphine Sulfate 4 mg 09/19/25 22:08 09/19/25 22:23 Morphine Sulfate 4 Mg/Ml Cartridge IVPUSH 09/19/25 22:09 4 mg ONCE ONE Administration Protocol Ondansetron HCl 4 mg 09/19/25 20:40 09/19/25 20:46 Ondansetron Hcl 4 Mg/2 Ml Vial IVPUSH 09/19/25 20:41 4 mg ONCE ONE Administration Medical Decision Making Medical Decision Making [facility] Narrative: 50-year-old female presents for evaluation abdominal pain. She denies any medical history or abdominal surgical history. Pain started last night. She is afebrile. She had associated nausea with vomiting. She had a bowel movement yesterday that was reportedly normal without black or bloody stool. She is slightly tachycardic to 102, she is afebrile. I suspect that the tachycardia is due to her level of discomfort. She is also mildly hypertensive to 136/94. She has a leukocytosis to 12.8 K. given her abdominal exam with tenderness and guarding left lower quadrant with an elevated leukocytosis we will get a CT scan of the abdomen pelvis to evaluate for biliary diverticulitis versus colitis. Differential Diagnosis Differential Diagnoses: The differential diagnosis associated with the presentation includes Diverticulitis Gastritis Constipation Obstipation Colon mass Admission/Observation Consideration of admission/observation: Escalation of care including admission/observation considered Consult Healthcare Provider Management of the patient was discussed with: Education Site Manager (general surgery) Lab Data [facility] Lab Attestation statement: I reviewed the patient's lab results. Mild leukocytosis. No significant anemia. Normal platelet count. No electrolyte abnormalities warranting dimension 09/19/25 18:11 09/19/25 18:11 Labs: Lab Results 09/19/25 09/19/25 Range/Units 18:11 18:40 WBC 12.8 H (4.8-10.8) X10*3/uL RBC 5.02 (4.20-5.50) X10*6/uL Hgb 14.0 (12.0-16.0) g/dl Hct 41.1 (37.0-47.0) % MCV 81.9 (80.0-98.0) fL MCH 27.9 (27.0-33.0) pg MCHC 34.1 (31.0-35.0) g/dl RDW 11.7 (11.0-16.0) % Plt Count 196 (160-400) X10*3/uL MPV 11.2 (9.4-12.3) fL Immature Gran % (Auto) 1.7 H (0.0-0.4) % Neut % (Auto) 82.5 H (45-73) % Lymph % (Auto) 8.6 L (20-40) % Snyder % (Auto) 7.0 (2-11) % Eos % (Auto) 0.0 (0-4) % Baso % (Auto) 0.2 (0-2) % Lymph # (Auto) 1.1 L (1.2-4.9) X10*3/uL Snyder # (Auto) 0.9 (0.1-1.2) X10*3/uL Eos # (Auto) 0.0 (0.0-0.4) X10*3/uL Baso # (Auto) 0.0 (0.0-0.2) X10*3/uL Abs Immat Gran (auto) 0.22 H (0.00-0.03) X10*3/uL Absolute Neuts (auto) 10.5 H (2.0-8.3) x10*3/uL Absolute Nucleated RBC 0.000 (0.0-0.012) X10*3/uL Nucleated RBC % (auto) 0.0 (0.0-0.2) /100WBC Sodium 135 (135-145) mmol/L Potassium 4.4 (3.3-5.1) mmol/L Chloride 102 (96-108) mmol/L Carbon Dioxide 24 (22-29) mmol/L Anion Gap 13 (12-20) BUN 12 (9-16) mg/dL Creatinine 0.71 (0.5-1.4) mg/dL Estim Creat Clear Calc 77.6 Estimated GFR > 60 Random Glucose 133 H (60-115) mg/dL Calcium 9.4 (8.4-10.2) mg/dL Total Bilirubin 1.0 (0.0-1.0) mg/dL AST 26 (5-31) U/L ALT 55 H (0-31) U/L Alkaline Phosphatase 98 (39-117) U/L Total Protein 8.2 H (6.5-8.0) g/dL Albumin 4.6 (3.5-5.0) g/dL Lipase 12 (8-78) U/L Beta HCG, Quant < 2 mIU/mL Urine Color Yellow Urine Appearance Clear Urine pH 6.0 (5.0-9.0) Ur Specific [place] <= 1.005 (1.005-1.025) Urine Protein Negative (Neg-Trace) mg/dL Urine Glucose (UA) Negative (Negative) mg/dL Urine Ketones Negative (Negative) mg/dL Urine Blood Trace H (Negative) Urine Nitrite Negative (Negative) Ur Leukocyte Esterase Trace H (Negative) Urine RBC 0-2 (0-2) /HPF Urine WBC 6-10 H (0-5) /HPF Ur Squamous Epith Cells 6-10 (0-2) /HPF Urine Bacteria Trace (None Seen) Hyaline Casts 0-2 (0-2) /LPF Urine Test NEGATIVE (NEGATIVE) Critical Care Time Critical Care Time Critical Care Time: Yes Total Critical Care Time: 35 Attestation: Patient requiring multiple doses of IV pain medication, IV antibiotics and specialty consultation ultimately culminating in admission Discharge Plan Discharge Clinical Impression: Acute appendicitis Patient Disposition: Admitted As Inpatient Interventions: Admission Worksheet (ED) Last Done: 09/20/25 02:57 Discharge Date/Time: 09/20/25 03:30
[2025-09-19 18:23] LABS: MANUAL DIFF FLAG NO
[2025-09-19 18:36] LABS: Hematocrit 41.1 % (37.0-47.0); Hemoglobin 14.0 g/dl (12.0-16.0); Imm Gran Abs Auto 0.22 X10*3/uL (0.00-0.03); Imm Gran Pct Auto 1.7 % (0.0-0.4); Lymphocytes Absolute Auto 1.1 X10*3/uL (1.2-4.9); Mean Corpuscular HGB Conc 34.1 g/dl (31.0-35.0); Mean Corpuscular Hemoglobin 27.9 pg (27.0-33.0); Mean Corpuscular Volume 81.9 fL (80.0-98.0); NRBC Abs Auto 0.000 X10*3/uL (0.0-0.012); NRBC Pct Auto 0.0 /100WBC (0.0-0.2); Platelet Count 196 X10*3/uL (160-400); Red Blood Count 5.02 X10*6/uL (4.20-5.50); White Blood Count 12.8 X10*3/uL (4.8-10.8)
[2025-09-19 18:46] LABS: Alanine Aminotransferase 55 U/L (0-31); Albumin Level 4.6 g/dL (3.5-5.0); Alkaline Phosphatase 98 U/L (39-117); Anion Gap 13 (12-20); Aspartate Amino Transferase 26 U/L (5-31); Blood Urea Nitrogen 12 mg/dL (9-16); Calcium 9.4 mg/dL (8.4-10.2); Carbon Dioxide 24 mmol/L (22-29); Chloride 102 mmol/L (96-108); Creatinine Clr Calc Pharmacy 77.6; Estimated Glomerular Filt Rate > 60; Lipase 12 U/L (8-78); Potassium 4.4 mmol/L (3.3-5.1); Sodium 135 mmol/L (135-145); Total Protein 8.2 g/dL (6.5-8.0)
[2025-09-19 18:51] LABS: Appearance Urine Clear; Glucose Urine UA Negative (Negative); PH 6.0 (5.0-9.0); Specific Gravity - Urine <= 1.005 (1.005-1.025); UMIC TRIGGER UACC YES
[2025-09-19 18:54] LABS: UPreg QC Valid YES
[2025-09-19 18:56] VITALS: BP 136/94; PULSE 102; RESP 19; TEMP 36.9; O2SAT 99
[2025-09-19 19:22] LABS: UACC Culture Trigger YES
--- OUTSIDE RECORDS SUMMARY | 2025-09-19 19:24 | XMS_ITS | Clinical Summary ---
Author Organization [facility] [address] [place] [address] Address [address], [place] Phone Care Team Providers Care Public Speaking Coach Name Role Phone Wesley Garcia MD Primary Care Provider [phone] Allergies No known active allergies Medications albuterol [...] 10:30 AM EDT Office Visit Adult Medicine [facility] [address] [place] [address] Wesley Garcia MD Neck pain (Primary Dx); [...] care for your loved ones. For example, residential child care counselor or elderly care for an older adult? [...] Upcoming Encounters Date Type Department Care Team ([facility] st Contact Info) Description 09/21/2025 10:00 AM EST Ancillary Procedure Pulmonology - Ward [address] [facility] [address] [place] [address] 09/21/2025 11:00 AM EST Office Visit Pulmonology [facility] [address] [facility] [address] [place] [phone] Aminta Earl MD [address] [place] [phone] Health Maintenance Due Date Last Done [...] Procedure Name Priority Date/Time Associated Diagnosis Comments [facility] SCREENING DIGITAL Routine 07/07/2024 3:10 PM EDT Encounter for screening mammogram for malignant neoplasm of breast from Last 3 Months or Most Recently Relevant to Health Maintenance Results * [facility] SCREENING DIGITAL (07/07/2024 3:10 PM EDT) Anatomical Region Laterality Modality Mammography 07/07/2024 1:40 PM EDT Narrative 07/07/2024 3:10 PM EDT [facility] Diagnostic Imaging Department [address] [place] [id number] Patient: JESUS MANUELSAUMYA /Age/Sex: 1975 - 48 - F Unit#: [id number] Location/Status: [facility] CLI Mnemonic/Ordering Site: [facility] Ordering Physician: WESLEY GARCIA MD [facility] Screening Digital - 07/07/24 - 1358 Report Status:Signed EXAM: [facility] Screening Digital EXAM DATE AND TIME: 07/07/2024 2:00 PM HISTORY: Screening. 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 COMPARISON: 04/27/22, 02/27/22, 02/06/22, 02/05/22, 11/05/20, 01/13/19, 12/10/17 TECHNIQUE: Bilateral digital breast tomosynthesis was performed in the CC and MLO projections. Computer aided detection with [employer] 3D 3.1 was employed. TISSUE DENSITY: b. [...] Procedure Note Lesia Bolden MD - 08/30/2024 [facility] Diagnostic Imaging Department [address] [place] [address] Patient: JESUS MANUELSAUMYA /Age/Sex: 1975 - 48 - F Unit#: [id number] Location/Status: [facility] CLI Mnemonic/Ordering Site: [facility] Ordering Physician: WESLEY GARCIA MD [facility] Screening Digital - 07/07/24 - 1358 Report Status:Signed EXAM: [facility] Screening Digital EXAM DATE AND TIME: 07/07/2024 2:00 PM HISTORY: Screening. Excisional biopsy of the right breast in 2021yielding pseudoangiomatous stromal hyperplasia (PASH). COMPARISON: 04/27/22, 02/27/22, 02/06/22, 02/05/22, 11/05/20, 01/13/19,12/10/17 TECHNIQUE: Bilateral digital breast tomosynthesis was performed in the CCand MLO projections. Computer aided detection with [employer] 3D 3.1was employed. TISSUE DENSITY: b. There [...] Most Recently Relevant to Health Maintenance Insurance [facility] Care Teams Public Speaking Coach Relationship Specialty Start Date End Date Wesley Garcia MD [address] [place] [phone] PCP - General Internal Medicine 06/09/21
--- OUTSIDE RECORDS SUMMARY | 2025-09-19 19:24 | XMS_ITS | Clinical Summary ---
Author Organization [facility] Address [address] [phone] Phone Care Team Providers Care Ribbon Winder Name Role Phone Unavailable Primary Care Provider [...] It is not the complete legal health record.[facility]
[2025-09-19] MEDS: iohexoL 350 MG/ML 100 ML INFUS..BTL IV (20:51)
[2025-09-19 21:59] VITALS: BP 135/72; PULSE 84; RESP 14; TEMP 36.8; O2SAT 99
--- NOTE | 2025-09-19 22:14 | ECG_ITS ---
Test Reason : PRE OP Blood Pressure : */* mmHG Vent. Rate : 87 BPM Atrial Rate : 87 BPM P-R Int : 152 ms QRS Dur : 92 ms QT Int : 376 ms P-R-T Axes : 61 28 7 degrees QTcB Int : 452 ms Normal sinus rhythm Possible Left atrial enlargement Borderline ECG No previous ECGs available Referred By: Bhavesh Angeles Electronically Signed By: Clay Luu
[2025-09-19 23:29] LABS: INTERNATIONAL NORM RATIO 1.2 (0.9-1.1); Prothrombin Time 14.3 SEC (11.2-13.5)
[2025-09-19] MEDS: Lactated Ringers 1,000 ML 125 ML IVCONT (23:34)
[2025-09-20] VITALS (10 sets, daily range): BP systolic 95–111; BP diastolic 53–63; PULSE 67–85; RESP 15–18; TEMP 36.1–38.1; O2SAT 94–100; BMI 28.6
[2025-09-20] MEDS: 0.9 % Sodium Chloride Flush 3 ML SYRINGE IVFLUSH ×3 (02:48→15:02)
--- NOTE | 2025-09-20 03:02 | HO.NURTONUR ---
Alert and oriented. can walk to bathroom. c/o abdominal pain and n/v x [address] - appendicitis, NPO, IV RAC LR @ 125/hr, Morphine 4mg q 4 PRN - last dose 0245. VSS. She also got zofran, zosyn and 1 liter NS down here. Sleeping at this time.
[2025-09-20] MEDS: Lactated Ringers 1,000 ML 125 ML IVCONT ×3 (04:02→20:30)
--- NOTE | 2025-09-20 05:52 | PM.HPGS ---
History of Present Illness History of Present Illness Date of Service: 09/20/25 <Laurie Ruth PA-C - Last Filed: 09/20/25 07:48> 09/20/25 <Derrick Pierce MD - Last Filed: 09/20/25 10:47> Chief complaint: appendicitis <Laurie Ruth PA-C - Last Filed: 09/20/25 07:48> Narrative: Magdalena Miller is a 50 year old female no known PMH who presented to the ED with complaints of abdominal pain. The pain began in the lower abdomen the evening prior to presentation. It was associated with nausea and vomiting and anorexia. She initially thought it was constipation and took miralax without relief in her symptoms. She was seen at the walk in clinic yesterday morning and was given colace and miralax and advised to seek evaluation in the ED if she had worsening pain. The pain became more severe and sharp which prompted her to come to the ED. She reports subjective fevers and dysuria. She denies chills, diarrhea, sick contacts. Work up in the ED included CBC, BMP, LFTs which was significant for a leukocytosis of 12.8. CT scan abd pelvis was obtained which showed dilated and fluid-filled appendix in the pelvis with wall thickening and adjacent inflammatory changes with obstructing appendicolith. UA also suggestive of UTI. <Laurie Ruth PA-C - Last Filed: 09/20/25 07:48> Review of Systems Constitutional: Constitutional: Reports as per HPI <Laurie Ruth PA-C - Last Filed: 09/20/25 07:48> ENT: Denies dizziness <Laurie Ruth PA-C - Last Filed: 09/20/25 07:48> Cardiovascular: Cardiovascular: Denies dyspnea <Laurie Ruth PA-C - Last Filed: 09/20/25 07:48> Respiratory: Respiratory: Denies dyspnea <ANNETTE Marquez Last Filed: 09/20/25 07:48> Gastrointestinal: Gastrointestinal: Reports as per HPI <ANNETTE Marquez Last Filed: 09/20/25 07:48> Integumentary/Breasts: Skin/Breast: Denies rash and Denies jaundice <ANNETTE Marquez Last Filed: 09/20/25 07:48> Neurologic: Denies dizziness <Laurie Ruth PA-C Last Filed: 09/20/25 07:48> [facility] Past Medical History Medical History: Medical History Carpal tunnel syndrome of right wrist <ANNETTE Marquez Last Filed: 09/20/25 07:48> Social History Social History: Social History Household Members: Spouse Housing: House Do you presently have visiting nurse or other home services: No Alcohol intake: current Alcohol intake frequency: holidays/special occasions only Comment: Mehreen BOWMAN Patient Tobacco Use Status: Never used Tobacco Smoked in Last 30 Days: No Use of substances other than those prescribed or required for medical reasons: No Have you been hit, kicked, punched, or otherwise hurt by someone within the past year? If so, by whom?: No Do you feel safe in your current relationship?: Yes Is there a partner from a previous relationship who is making you feel unsafe now?: No Are you made to feel afraid or neglected: No Advance Directives: No Advance Directives Information Provided: Yes Do you have a plan to hurt others: No Plan Recently lost weight without trying: No How much weight loss: Not applicable Eating poorly because of decreased appetite: No Nutrition screen score: 0 Nutrition Risks: No Nutritional Risk Patient : No : No Poor oral hygiene: No Current occupational status: employed Current occupation: rt hand/ packing <ANNETTE Marquez Last Filed: 09/20/25 07:48> Meds Allergies/Adverse reactions: Allergies Allergy/AdvReac Type Severity Reaction Status Date / Time No Known Allergies Allergy Verified 09/19/25 16:45 <ANNETTE Marquez Last Filed: 09/20/25 07:48> Active Medications: Current Medications Acetaminophen (Acetaminophen 325 Mg Tablet) 650 mg PO Q6H PRN PRN Reason: Pain, Mild 1-3,fever,headache Lactated Ringer's (Lr) 1,000 mls @ 125 mls/hr IVCONT .Q8H [facility] Last Admin: 09/20/25 04:02 Dose: 125 mls/hr Piperacillin Sod/Tazobactam (Sod 3.375 gm/ Sodium Chloride) 50 mls @ 100 mls/hr IV Q6H [facility] Last Infusion: 09/20/25 04:29 Dose: Infused Melatonin (Melatonin 3 Mg Tablet) 6 mg PO BEDTIME PRN PRN Reason: Insomnia Morphine Sulfate (Morphine Sulfate 4 Mg/Ml Cartridge) 4 mg IVPUSH Q4H PRN; Protocol PRN Reason: Pain, Severe (Pain Scale 7-10) Last Admin: 09/20/25 02:48 Dose: 4 mg Ondansetron HCl (Ondansetron Hcl 4 Mg/2 Ml Vial) 4 mg IVPUSH Q6H PRN PRN Reason: Nausea and Vomiting Sodium Chloride (0.9 % Sodium Chloride Flush 3 Ml Syringe) 3 ml IVFLUSH QSHIFT [facility] Last Admin: 09/20/25 02:48 Dose: 3 ml <Laurie Ruth PA-C - Last Filed: 09/20/25 07:48> Home medications: Home Medications ?Medication ?Instructions ?Recorded ?Confirmed ?Last Taken ?Type Lactobacillus acidophilus and 1 cap PO DAILY 09/20/25 09/20/25 Unknown History rhamnosus 15 billion cell capsule (Probiotic) albuterol sulfate 90 mcg/actuation 2 puff inhalation Q4H PRN 09/20/25 09/20/25 Unknown History aerosol inhaler Respiratory Distress biotin 1 mg tablet 500 mcg PO DAILY 09/20/25 09/20/25 Unknown History fluticasone propionate 50 2 spray intranasal DAILY PRN 09/20/25 09/20/25 Unknown History mcg/actuation nasal seasonal allergies spray,suspension magnesium 250 mg tablet 0 mg PO DAILY 09/20/25 Unknown History <Laurie Ruth PA-C - Last Filed: 09/20/25 07:48> Physical Exam Vital Signs: Vital Signs: Last Vital Signs Temp 98.2 F 09/20/25 03:27 Pulse 82 09/20/25 03:27 Resp 16 09/20/25 03:27 BP 111/58 L 09/20/25 03:27 Pulse Ox 94 09/20/25 03:27 O2 Del Method Room Air 09/20/25 03:27 BMI result Body Mass Index 28.6 <ANNETTE Marquez Last Filed: 09/20/25 07:48> Const: General: comfortable, no acute distress and alert <ANNETTE Marquez Last Filed: 09/20/25 07:48> Orientation/consciousness: patient oriented x3 <ANNETTE Marquez Last Filed: 09/20/25 07:48> Resp: Effort & Inspection: normal respiratory effort <ANNETTE Marquez Last Filed: 09/20/25 07:48> GI: Inspection: Yes normal to inspection <ANNETTE Marquez Last Filed: 09/20/25 07:48> Palpation (GI): Soft to palpation, Tenderness to palpation present (GI) (moderate RLQ and suprapubic tenderness with rebound), no guarding and not rigid <ANNETTE Marquez Last Filed: 09/20/25 07:48> Percussion: Yes normal to percussion <ANNETTE Marquez Last Filed: 09/20/25 07:48> Skin: General skin exam: no rashes or lesions noted <ANNETTE Marquez Last Filed: 09/20/25 07:48> Neuro: General: patient oriented x3 and moves all extremities <ANNETTE Marquez Last Filed: 09/20/25 07:48> Results Results Labs: Short CBC 09/19/25 Range/Units 18:11 WBC 12.8 H (4.8-10.8) X10*3/uL Hgb 14.0 (12.0-16.0) g/dl Hct 41.1 (37.0-47.0) % Plt Count 196 (160-400) X10*3/uL BMP 09/19/25 18:11 Sodium 135 Potassium 4.4 Chloride 102 Carbon Dioxide 24 BUN 12 Creatinine 0.71 Calcium 9.4 Liver Function 09/19/25 Range/Units 18:11 Total Bilirubin 1.0 (0.0-1.0) mg/dL AST 26 (5-31) U/L ALT 55 H (0-31) U/L Alkaline Phosphatase 98 (39-117) U/L Albumin 4.6 (3.5-5.0) g/dL Urine 09/19/25 Range/Units 18:40 Urine Color Yellow Urine Appearance Clear Urine pH 6.0 (5.0-9.0) Ur Specific Waller <= 1.005 (1.005-1.025) Urine Protein Negative (Neg-Trace) mg/dL Urine Glucose (UA) Negative (Negative) mg/dL Urine Test NEGATIVE (NEGATIVE) <Laurie Ruth PA-C - Last Filed: 09/20/25 07:48> Abdomen CT scan report/results: report reviewed and image reviewed <Laurie Ruth PA-C - Last Filed: 09/20/25 07:48> Additional studies: labs reviewed <Laurie Ruth PA-C - Last Filed: 09/20/25 07:48> Assessment and Plan (1) Acute appendicitis: Status: Acute <Laurie Ruth PA-C - Last Filed: 09/20/25 07:48> [age] year female with no medical problems, with lower abdominal pain for about 2-3 days Abdomen tender mostly on the suprapubic area I have reviewed her CAT scan images -- the appendix appears inflamed and dilated, with note of an appendicolith I therefore explained to her the technique of laparoscopic appendectomy and possible open appendectomy I reviewed the risks including but not limited to bleeding and infections, staple line leak, bowel injury, abscesses, postop pain, inherent risks of anesthesia I explained the benefits and alternatives She has given consent Her was with her during the visit Patient was seen and examined independently <Derrick Pierce MD - Last Filed: 09/20/25 10:47> 50 year old female no known PMH presenting with lower abdominal pain, vomiting and anorexia for 1 day with leukocytosis and CT scan showing dilated, thickened appendix with appendicolith consistent with acute appendicitis. She has been admitted to the surgical service for further treatment and started on IV zosyn, IVF. UA also suggestive of UTI and this will be covered by current abx. Given the presence of an appendicolith, it was recommended to proceed with appendectomy. Risks, benefits, alternatives of laparoscopic possible open appendectomy were reviewed with the patient and included but not limited to bleeding, infection, numbness, pain, scarring, bowel or bladder injury or staple line leak and the patient wishes to proceed. She has been added onto the OR schedule for today. Cont NPO. <Laurie Ruth PA-C - Last Filed: 09/20/25 07:48> Quality Stroke Does the patient have a stroke diagnosis?: No <Laurie Ruth PA-C - Last Filed: 09/20/25 07:48> VTE Prior VTE?: No <Laurie Ruth PA-C - Last Filed: 09/20/25 07:48> VTE Risk Level:: Surgical - low <Laurie Ruth PA-C - Last Filed: 09/20/25 07:48> VTE Device Contraindication: N/A - Device Ordered <aLurie Ruth PA-C - Last Filed: 09/20/25 07:48> VTE Drug Contraindication: Treatment Not Indicated <Laurie Ruth PA-C - Last Filed: 09/20/25 07:48> Procedures Date of Service Date of Service: 09/20/25 <Laurie Ruth PA-C - Last Filed: 09/20/25 07:48> 09/20/25 <Derrick Pierce MD - Last Filed: 09/20/25 10:47>
--- NOTE | 2025-09-20 09:16 | PHA.MEDREC ---
Pharmacy Consult ? Medication Reconciliation Pharmacy has completed the medication reconciliation.Med rec complete, spoke to patient. She takes a couple of vitamins/supplements including magnesium but is unsure of the dose
--- NOTE | 2025-09-20 13:11 | P.CONAN_ITS ---
Documented by User: Jolene Jo NP 09/20/25 13:23 HPI - Anesthesia Eval Consult details Narrative: 50 yr old female for laparoscopic appendectomy No recent illness. No CP or SOB with moderate activity Asthma: well-controlled PMFSH Active Problems Active Problems: All Active Problems Acute appendicitis (Acute) Perichondritis of left ear (Acute) Upper respiratory tract infection (Acute) Carpal tunnel syndrome of right wrist (Acute) Past Medical History Medical History Carpal tunnel syndrome of right wrist Family History Family history of problems with anesthesia: No Surgical History History of Problems with Anesthesia: No Social History Social History Household Members: Spouse Housing: House Do you presently have visiting nurse or other home services: No Alcohol intake: current Alcohol intake frequency: holidays/special occasions only Comment: Mehreen BOWMAN Patient Tobacco Use Status: Never used Tobacco Smoked in Last 30 Days: No Use of substances other than those prescribed or required for medical reasons: No Have you been hit, kicked, punched, or otherwise hurt by someone within the past year? If so, by whom?: No Do you feel safe in your current relationship?: Yes Is there a partner from a previous relationship who is making you feel unsafe now?: No Are you made to feel afraid or neglected: No Advance Directives: No Advance Directives Information Provided: Yes Do you have a plan to hurt others: No Plan Recently lost weight without trying: No How much weight loss: Not applicable Eating poorly because of decreased appetite: No Nutrition screen score: 0 Nutrition Risks: No Nutritional Risk Patient : No : No Poor oral hygiene: No service: No Current occupational status: employed Current occupation: rt hand/ packing Meds Allergies Allergy/AdvReac Type Severity Reaction Status Date / Time No Known Allergies Allergy Verified 09/19/25 16:45 Active Medications: Current Medications Acetaminophen (Acetaminophen 325 Mg Tablet) 650 mg PO Q6H PRN PRN Reason: Pain, Mild 1-3,fever,headache Lactated Ringer's (Lr) 1,000 mls @ 125 mls/hr IVCONT .Q8H [facility] Last Admin: 09/20/25 12:12 Dose: 125 mls/hr Piperacillin Sod/Tazobactam (Sod 3.375 gm/ Sodium Chloride) 50 mls @ 100 mls/hr IV Q6H [facility] Last Infusion: 09/20/25 11:23 Dose: Infused Melatonin (Melatonin 3 Mg Tablet) 6 mg PO BEDTIME PRN PRN Reason: Insomnia Morphine Sulfate (Morphine Sulfate 4 Mg/Ml Cartridge) 4 mg IVPUSH Q4H PRN; Protocol PRN Reason: Pain, Severe (Pain Scale 7-10) Last Admin: 09/20/25 07:49 Dose: 4 mg Ondansetron HCl (Ondansetron Hcl 4 Mg/2 Ml Vial) 4 mg IVPUSH Q6H PRN PRN Reason: Nausea and Vomiting Sodium Chloride (0.9 % Sodium Chloride Flush 3 Ml Syringe) 3 ml IVFLUSH QSHIFT [facility] Last Admin: 09/20/25 07:49 Dose: 3 ml Home Medications ?Medication ?Instructions ?Recorded ?Confirmed ?Last Taken ?Type Lactobacillus acidophilus and 1 cap PO DAILY 09/20/25 09/20/25 Unknown History rhamnosus 15 billion cell capsule (Probiotic) albuterol sulfate 90 mcg/actuation 2 puff inhalation Q 4H PRN 09/20/25 09/20/25 Unknown History aerosol inhaler Respiratory Distress biotin 1 mg tablet 500 mcg PO DAILY 09/20/25 Unknown History fluticasone propionate 50 2 spray intranasal DAILY PRN 09/20/25 09/20/25 Unknown History mcg/actuation nasal seasonal allergies spray,suspension magnesium 250 mg tablet 0 mg PO DAILY 09/20/25 Unkn own History Exam Height,Weight and Vital Signs: Height 5 ft Weight 66.4 kg Last Vital Signs Temp 97.8 F 09/20/25 08:00 Pulse 76 09/20/25 08:00 Resp 16 09/20/25 08:00 BP 111/58 L 09/20/25 08:00 Pulse Ox 98 09/20/25 08:00 O2 Del Method Room Air 09/20/25 08:00 Pertinent Lab Results Pertinent Lab Results: Laboratory Tests 09/19/25 09/19/25 09/19/25 18:11 18:40 23:08 WBC 12.8 H RBC 5.02 Hgb 14.0 Hct 41.1 MCV 81.9 MCH 27.9 MCHC 34.1 RDW 11.7 Plt Count 196 MPV 11.2 Immature Gran % (Auto) 1.7 H Neut % (Auto) 82.5 H Lymph % (Auto) 8.6 L Davie % (Auto) 7.0 Eos % (Auto) 0.0 Baso % (Auto) 0.2 Lymph # (Auto) 1.1 L Davie # (Auto) 0.9 Eos # (Auto) 0.0 Baso # (Auto) 0.0 Abs Immat Gran (auto) 0.22 H Absolute Neuts (auto) 10.5 H Absolute Nucleated RBC 0.000 Nucleated RBC % (auto) 0.0 PT 14.3 H INR 1.2 H Sodium 135 Potassium 4.4 Chloride 102 Carbon Dioxide 24 Anion Gap 13 BUN 12 Creatinine 0.71 Estim Creat Clear Calc 77.6 Estimated GFR > 60 Random Glucose 133 H Calcium 9.4 Total Bilirubin 1.0 AST 26 ALT 55 H Alkaline Phosphatase 98 Total Protein 8.2 H Albumin 4.6 Lipase 12 Beta HCG, Quant < 2 Urine Color Yellow Urine Appearance Clear Urine pH 6.0 Ur Specific Ronan <= 1.005 Urine Protein Negative Urine Glucose (UA) Negative Urine Ketones Negative Urine Blood Trace H Urine Nitrite Negative Ur Leukocyte Esterase Trace H Urine RBC 0-2 Urine WBC 6-10 H Ur Squamous Epith Cells 6-10 Urine Bacteria Trace Hyaline Casts 0-2 Urine Test NEGATIVE Blood Type B Positive Antibody Screen NEGATIVE Narrative Narrative: EKG 09/19/25 Vent. Rate : 87 BPM Atrial Rate : 87 BPM P-R Int : 152 ms QRS Dur : 92 ms QT Int : 376 ms P-R-T Axes : 61 28 7 degrees QTcB Int : 452 ms Normal sinus rhythm Possible Left atrial enlargement Borderline ECG No previous ECGs available Assessment and Plan Final Anesthetic Review Family History of Problems with Anesthesia: No History of Problems with Anesthesia: No Documented by User: Gary Gutiérrez MD 09/20/25 19:06 [facility] Past Medical History Medical History Carpal tunnel syndrome of right wrist Social History Social History Household Members: Spouse Housing: House Do you presently have visiting nurse or other home services: No Alcohol intake: current Alcohol intake frequency: holidays/special occasions only Comment: Mehreen BOWMAN Patient Tobacco Use Status: Never used Tobacco Smoked in Last 30 Days: No Use of substances other than those prescribed or required for medical reasons: No Have you been hit, kicked, punched, or otherwise hurt by someone within the past year? If so, by whom?: No Do you feel safe in your current relationship?: Yes Is there a partner from a previous relationship who is making you feel unsafe now?: No Are you made to feel afraid or neglected: No Advance Directives: No Advance Directives Information Provided: Yes Do you have a plan to hurt others: No Plan Recently lost weight without trying: No How much weight loss: Not applicable Eating poorly because of decreased appetite: No Nutrition screen score: 0 Nutrition Risks: No Nutritional Risk Patient : No : No Poor oral hygiene: No service: No Current occupational status: employed Current occupation: rt hand/ packing Meds Allergies Allergy/AdvReac Type Severity Reaction Status Date / Time No Known Allergies Allergy Verified 09/19/25 16:45 Home Medications ?Medication ?Instructions ?Recorded ?Confirmed ?Last Taken ?Type Lactobacillus acidophilus and 1 cap PO DAILY 09/20/25 09/20/25 Unknown History rhamnosus 15 billion cell capsule (Probiotic) albuterol sulfate 90 mcg/actuation 2 puff inhalation Q 4H PRN 09/20/25 09/20/25 Unknown History aerosol inhaler Respiratory Distress biotin 1 mg tablet 500 mcg PO DAILY 09/20/25 Unknown History fluticasone propionate 50 2 spray intranasal DAILY PRN 09/20/25 09/20/25 Unknown History mcg/actuation nasal seasonal allergies spray,suspension magnesium 250 mg tablet 0 mg PO DAILY 09/20/25 Unkn own History Exam Airway Mallampati Class: II TM Dist: >3cm Neck ROM: Full Heart: ok Lungs: ok Assessment and Plan Assessment Anesthesia Assessment: Anesthesia Plan Discussed and Chart Reviewed Final Anesthetic Review NPO: Yes ASA Class: II Final Preanesthetic Review: No Changes in Pt Med Stat, Meds/Allgs Chart Reviewed, Consent Obtained/Reviewed and Anes Risks/Benef Reviewed Patient Risk: Low Procedure Risk: Intermediate Anesthetic Plan Anesthetic Plan: GA and Agree w/ Assess. and Plan Disposition: Standard PACU
--- NOTE | 2025-09-20 14:07 | MHC.CM.PN ---
PATIENT LIVES AT HOME W/ . INDEPENDENT W/ ALL CARE. DENIES USE OF DME OR SERVICES. PCP WESLEY WYNN MD NO HCP. VISITING W/ FAMILY AND DEFERS AT THIS TIME. DP: HOME SELF CARE, TRANSPORT. CM WILL CONTINUE TO FOLLOW.
--- NOTE | 2025-09-20 19:51 | P.OP_ITS ---
Operative Note Operative Note Date of Service: 09/20/25 Narrative: Preop Diagnosis: Acute appendicitis Postop diagnosis: Acute appendicitis, severely indurated, likely perforated, with purulent material in the pelvis, localized peritonitis;the appendix was densely adherent to the pelvis Procedure: Laparoscopic appendectomy, placement of ALETHA drain Surgeon: Derrick Pierce MD The patient is a 50 year old female admitted because of lower abdominal pain with CAT scan findings consistent with acute appendicitis along with a appendicolith. She understood the technique of appendectomy. She was aware of the risks, benefits, and alternatives She was brought to the operating room placed supine under general anesthesia via endotracheal tube. Rosen catheter was inserted. The abdomen was prepped and draped in the usual sterile fashion. The patient was receiving scheduled IV an tibiotics A surgical time-out was done I made a short infraumbilical incision with a blade 15. This carried down through the subcutaneous fat. The fascia was visualized. The fascia was incised and the peritoneum was entered. Through this incision a Palacios port was introduced. We insufflated the pressure of 15 mm Hg. From here on the rest of the procedure was done under vision with the 10 mm 30 degree scope He is laparoscopic visualization inserted a 5/12 mm port in the left lower quadrant with a small stab incision. A 5 mm ports introduced a small incision in the suprapubic margin. Graspers were placed through the working ports. The patient is placed in a head-down [id number] position. We reflected bowel loops away from the right lower quadrant. The cecum was seen. This was distended as well. However, inferior the cecum was note of severely indurated fatty tissue all the way to the pelvis. There were small bowel loops markedly adherent to the area as well. There was note of localized peritonitis in the surrounding small bowel loops in the peritoneal lining. There was note of thick purulent material in the pelvis in the right lower quadrant which we suctioned out. I proceeded to gently reflect the small bowel loops away from the pelvis. This has then carefully and deliberately until was able to see what appeared to be a very densely adherent, very indurated, markedly distended appendix stuck to the pelvis. We had to carefully tease this appendix off of the pelvis until was able to be released this and bring it out into the field. By doing so was able to also visualize the base of the appendix. The distal 2/3 of the appendix was markedly distended, very indurated, with significant indurated mesentery I was able to apply a grasper at the distal appendix to put this on stretch. I gently dissected the base of the appendix until was able to create a mesenteric window. I transected the base of the appendix using an Endo-TRISTON 30 mm stapler. This was inflamed and erythematous but otherwise viable I then proceeded to retract the appendix to expose the attached mesoappendix. The appendix was friable because of the severe inflammation. I then serially dissected the mesoappendix with the LigaSure to divide this until the entire appendix was completely . The appendix was retrieved through an endobag through the left lower quadrant incision. I reinserted all ports and re-insufflated I copiously irrigated with 2 L of fluid. I observed all 4 quadrants. There was no evidence of any bowel injury or any other pathology There was note of good hemostasis. In view of the presence of the purulent material, I positioned a ALETHA drain in the right lower quadrant all the way to the pelvis and this was brought up through the suprapubic incision. This has secured to the skin with anchoring sutures using nylon 3-0 I examined 1 last time laparoscopically. I pulled the omentum to cover the right lower quadrant We withdrew the remaining ports, removing the Palacios port last . I closed the fascia of the umbilical incision with a [id number] Polysorb 0 stitch. Skin closure was achieved on all incisions using Polysorb 4-0 subcuticular running sutures. All incisions were infiltrated with Marcaine 0.5% for postop analgesia. Dressings were applied. The procedure was completed The patient tolerated the procedure well. There were no immediate complications. Initial and final counts of sponges and instruments were correct. Estimated blood loss was about 50 cc The patient was extubated without difficulty and transferred to the recovery room with stable vital signs.
--- NOTE | 2025-09-20 20:21 | PM.EVENT ---
Event Note Date of Service: 09/20/25 Event Note: Seen postop Underwent laparoscopic appendectomy Appears to have good pain control ALETHA drain serosanguineous output Stable vital signs Looks well Awake and alert Pain management updated Time Spent With Patient Time: Total time managing care of this patient today ____ minutes.
[2025-09-20] MEDS: oxyCODONE HCl Immed Release 5 MG TABLET PO (22:34)
[2025-09-21 03:26] VITALS: BP 98/56; PULSE 57; RESP 14; TEMP 36; O2SAT 95
[2025-09-21] MEDS: oxyCODONE HCl Immed Release 5 MG TABLET PO ×3 (04:13→13:39)
[2025-09-21] MEDS: Lactated Ringers 1,000 ML 125 ML IVCONT (04:14)
[2025-09-21 06:47] LABS: Hematocrit 32.6 % (37.0-47.0); Hemoglobin 10.5 g/dl (12.0-16.0); Mean Corpuscular HGB Conc 32.2 g/dl (31.0-35.0); Mean Corpuscular Hemoglobin 27.5 pg (27.0-33.0); Mean Corpuscular Volume 85.3 fL (80.0-98.0); NRBC Abs Auto 0.000 X10*3/uL (0.0-0.012); NRBC Pct Auto 0.0 /100WBC (0.0-0.2); Platelet Count 131 X10*3/uL (160-400); Red Blood Count 3.82 X10*6/uL (4.20-5.50); White Blood Count 8.2 X10*3/uL (4.8-10.8)
[2025-09-21 06:58] LABS: Anion Gap 8 (12-20); Blood Urea Nitrogen 11 mg/dL (9-16); Carbon Dioxide 26 mmol/L (22-29); Chloride 106 mmol/L (96-108); Creatinine Clr Calc Pharmacy 84.7; Estimated Glomerular Filt Rate > 60; Potassium 3.6 mmol/L (3.3-5.1); Sodium 136 mmol/L (135-145)
[2025-09-21 07:05] LABS: Calcium 8.2 mg/dL (8.4-10.2)
--- NOTE | 2025-09-21 07:37 | PM.PNGS ---
Subjective Subjective Date of Service: 09/21/25 <Laurie Ruth PA-C - Last Filed: 09/21/25 07:40> 09/21/25 <Jesus Bautista MD - Last Filed: 09/21/25 08:32> 09/21/25 <Derrick Pierce MD - Last Filed: 09/21/25 16:10> Interval history: Very sore this morning at incision site and RLQ. Did not eat last night. OOB to bathroom. Denies nausea, feels hungry. <Laurie Ruth PA-C - Last Filed: 09/21/25 07:40> Physical Exam Vital Signs: Vital Signs: Last Vital Signs Temp 96.8 F 09/21/25 03:26 Pulse 57 09/21/25 03:26 Resp 14 09/21/25 03:26 BP 98/56 L 09/21/25 03:26 Pulse Ox 95 09/21/25 03:26 O2 Del Method Room Air 09/21/25 03:26 O2 Flow Rate 2 09/20/25 20:14 FiO2 43 09/20/25 20:14 BMI result Body Mass Index 28.6 <Laurie Ruth PA-C - Last Filed: 09/21/25 07:40> Const: General: comfortable, no acute distress and alert <Laurie Ruth PA-C - Last Filed: 09/21/25 07:40> Orientation/consciousness: patient oriented x3 <Laurie Ruth PA-C - Last Filed: 09/21/25 07:40> Resp: Effort & Inspection: normal respiratory effort <Laurie Ruth PA-C - Last Filed: 09/21/25 07:40> GI: Other: ALETHA drain serosanguineous dressings clean and intact mild lower abd tenderness <Laurie Ruth PA-C - Last Filed: 09/21/25 07:40> Inspection: Yes distended (mild) <ANNETTE Marquez Last Filed: 09/21/25 07:40> Palpation (GI): no guarding <Laurie Ruth PA-C - Last Filed: 09/21/25 07:40> Skin: General skin exam: no rashes or lesions noted <Laurie Ruth PA-C - Last Filed: 09/21/25 07:40> Neuro: General: patient oriented x3 and moves all extremities <Laurie Ruth PA-C - Last Filed: 09/21/25 07:40> Objective Data Active Medications Albuterol Sulfate (Albuterol Sulfate 90 Mcg 8 Gm Inhaler) 2 puff INHALE Q4H PRN PRN Reason: Respiratory Distress Lactated Ringer's (Lr) 1,000 mls @ 125 mls/hr IVCONT .[facility]8H [facility] Last Admin: 09/21/25 04:14 Dose: 125 mls/hr Documented By: CHAPARRO Piperacillin Sod/Tazobactam (Sod 3.375 gm/ Sodium Chloride) 50 mls @ 100 mls/hr IV Q6H [facility] Last Infusion: 09/21/25 05:05 Dose: Infused Documented By: CHAPARRO Acetaminophen (Ofirmev) 1,000 mg in 100 mls @ 400 mls/hr IV Q6H [facility] Last Infusion: 09/21/25 06:39 Dose: Infused Documented By: CHAPARRO Melatonin (Melatonin 3 Mg Tablet) 6 mg PO BEDTIME PRN PRN Reason: Insomnia Morphine Sulfate (Morphine Sulfate 4 Mg/Ml Cartridge) 4 mg IVPUSH Q4H PRN; Protocol PRN Reason: Pain, Severe (Pain Scale 7-10) Last Admin: 09/20/25 15:41 Dose: 4 mg Documented By: VERNON Naloxone HCl (Naloxone Hcl 0.4 Mg/Ml Vial) 0.04 mg IVPUSH Q5M PRN PRN Reason: Excessive sedation or RR < 8 Ondansetron HCl (Ondansetron Hcl 4 Mg/2 Ml Vial) 4 mg IVPUSH Q6H PRN PRN Reason: Nausea and Vomiting Oxycodone HCl (Oxycodone Hcl Immed Release 5 Mg Tablet) 5 mg PO Q4H PRN PRN Reason: Pain, Moderate(Pain Scale 4-6) Last Admin: 09/21/25 04:13 Dose: 5 mg Documented By: CHAPARRO Sodium Chloride (0.9 % Sodium Chloride Flush 3 Ml Syringe) [facility] Last Admin: 09/20/25 21:36 Dose: Not Given Documented By: CHAPARRO Non-Admin Reason: IV Running <Laurie Ruth PA-C - Last Filed: 09/21/25 07:40> Labs CBC & Chem 7: 09/21/25 06:30 09/21/25 06:30 <Laurie Ruth PA-C - Last Filed: 09/21/25 07:40> Labs: Laboratory Results - last 24 hr 09/21/25 06:30 MCV 85.3 MCH 27.5 MCHC 32.2 RDW 11.9 Plt Count 131 L D MPV 11.3 Absolute Nucleated RBC 0.000 Nucleated RBC % (auto) 0.0 Anion Gap 8 L Estim Creat Clear Calc 84.7 Estimated GFR > 60 Random Glucose 86 Calcium 8.2 L D <Laurie Ruth PA-C - Last Filed: 09/21/25 07:40> Microbiology Microbiology Results: Microbiology 09/19/25 Unknown Urine Culture - Preliminary Urine clean catch - Clean Catch Midstream No growth to date. <Laurie Ruht PA-C - Last Filed: 09/21/25 07:40> Procedures Date of Service Date of Service: 09/21/25 <Laurie Ruth PA-C - Last Filed: 09/21/25 07:40> 09/21/25 <Jesus Bautista MD - Last Filed: 09/21/25 08:32> 09/21/25 <Derrick Pierce MD - Last Filed: 09/21/25 16:10> Progress Note: A&P Assessment and plan (1) Acute appendicitis: Status: Acute <Laurie Ruth PA-C - Last Filed: 09/21/25 07:40> Assessment and Plan: Says she had a good night Feels much better compared to yesterday Pain well controlled No fever Abdomen is soft ALETHA drain serosanguineous In view of the significant amounts of purulent murky peritoneal fluid in the pelvis and surrounding the appendix, and likely perforation we will keep for another day for IV antibiotics Plan to DC with ALETHA drain and I will see her next week to remove this Looks well overall at bedside Seen and examined independently <Derrick Pierce MD - Last Filed: 09/21/25 16:10> (2) S/P laparoscopic appendectomy: Status: Acute <ANNETTE Marquez Last Filed: 09/21/25 07:40> Assessment and Plan: POD #1 s/p lap appy, likely perforated as with purulence in pelvis. Doing well post op. Clinically appearing well, abd benign with appropriate post op tenderness. ALETHA drain nonpurulent. Diet as tolerated. OOB/ambulation increasing activity and IS use. Will need IV abx for another day. Patient comfortable with plan. <Laurie Ruth PA-C - Last Filed: 09/21/25 07:40> Time Spent With Patient Time: Total time managing care of this patient today ____ minutes. <Laurie Ruth PA-C - Last Filed: 09/21/25 07:40> Quality Stroke Does the patient have a stroke diagnosis?: No <ANNETTE Marquez Last Filed: 09/21/25 07:40> VTE Prior VTE?: No <Laurie Ruth PA-C - Last Filed: 09/21/25 07:40> VTE Risk Level:: Surgical - low <ANNETTE Marquez Last Filed: 09/21/25 07:40> VTE Device Contraindication: N/A - Device Ordered <Laurie Ruth PA-C - Last Filed: 09/21/25 07:40> VTE Drug Contraindication: Treatment Not Indicated <Laurie Ruth PA-C - Last Filed: 09/21/25 07:40>
[2025-09-21 08:00] VITALS: BP 116/72; PULSE 73; RESP 14; TEMP 36.1; O2SAT 98
[2025-09-21] MEDS: 0.9 % Sodium Chloride Flush 3 ML SYRINGE IVFLUSH ×3 (09:38→22:01)
--- NOTE | 2025-09-21 10:10 | HO.POSTANES ---
Post Anesthesia Evaluation Post Anesthesia Evaluation Date of Service: 09/21/25 Vital Signs: Vital Signs Temp Pulse Resp BP Pulse Ox O2 Del Method 09/21/25 08:00 97.0 F 73 14 116/72 98 Room Air 09/21/25 03:26 96.8 F 57 14 98/56 L 95 Room Air Anesthesia: General Endotracheal-GETA Mental Status: Awake Pain Control: Satisfactory Nausea/Vomiting: None Hydration: Adequate Anesthesia-Related Issues: No Anes. Related Issues
[2025-09-21 15:36] VITALS: BP 105/55; PULSE 73; RESP 18; TEMP 36.6; O2SAT 99
--- NOTE | 2025-09-21 16:01 | MHC.CM.PN ---
PER MD, PT WILL LIKELY BE READY TO DC TOMORROW AND WILL NEED [facility] REFERRAL MADE
--- NOTE | 2025-09-21 16:06 | P.DS_ITS ---
DS: Providers Provider Date of Service: 09/21/25 Date of admission: 09/19/25 22:30 Date of discharge: 09/22/25 Primary care physician: Lynn Garcia MD Admitting clinician: Derrick Pierce DS: Diagnosis Discharge Diagnosis (1) Acute appendicitis: Status: Acute (2) S/P laparoscopic appendectomy: Status: Acute DS: Summary Hospital Course Hospital Course: 52 year female, otherwise healthy, admitted for lower abdominal pain on the evening of September 19, 2025. Her CAT scan showed significant inflammatory changes surrounding the appendix with appendicoliths. She underwent lapa roscopic appendectomy on 09/20/2025. The appendix was very indurated with associated localized peritonitis, purulent fluid in the pelvis. A ALETHA drain was left in place. She tolerated the procedure well. She was kept on IV antibiotics postoperatively. She continue to tolerate diet and had significant improvement. She continues to do well and remains afebrile. She is being discharged with a ALETHA drain in place. A visiting nurse has been arranged as well I will see her in the office next week to remove her ALETHA drain. She will be on oral antibiotics Time Attestation Total time managing care of this patient today: 30 mintues. Discharge Coordination Time (in mins): Thirty min Quality: Safe Use of Opioids Does Pt have an Active Cancer Diagnosis on the Problem List?: No Quality: Stroke Does the patient have a stroke diagnosis?: No Physical Exam Vital Signs: Vital Signs: Last Vital Signs Temp 97.9 F 09/21/25 15:36 Pulse 73 09/21/25 15:36 Resp 18 09/21/25 15:36 BP 105/55 L 09/21/25 15:36 Pulse Ox 99 09/21/25 15:36 O2 Del Method Room Air 09/21/25 15:36 O2 Flow Rate 2 09/20/25 20:14 FiO2 43 09/20/25 20:14 BMI result Body Mass Index 28.6 Const: General: comfortable and no acute distress Resp: Effort & Inspection: normal respiratory effort Cardio: Rate: regular rate GI: Other: All incisions clean and dry, ALETHA drain with serosanguineous out Palpation (GI): Soft to palpation, not firm, nontender and no guarding DS: Data Data Completed and Pending Pending studies at discharge: Pending at discharge 09/20/25 19:08 Surgical [PTH] Routine Labs on day of discharge: Laboratory Results - last 24 hr 09/21/25 06:30 WBC 8.2 RBC 3.82 L D Hgb 10.5 L D Hct 32.6 L D MCV 85.3 MCH 27.5 MCHC 32.2 RDW 11.9 Plt Count 131 L D MPV 11.3 Absolute Nucleated RBC 0.000 Nucleated RBC % (auto) 0.0 Sodium 136 Potassium 3.6 Chloride 106 Carbon Dioxide 26 Anion Gap 8 L BUN 11 Creatinine 0.66 Estim Creat Clear Calc 84.7 Estimated GFR > 60 Random Glucose 86 Calcium 8.2 L D Discharge Plan Discharge Anticipated Discharge Date/Time: 09/22/25 08:46 Patient Disposition: Home Health Service Discharge Diagnosis: acute appendicitis, s/p laparoscopic appendectomy Referrals: [facility] [Outside] Derrick Pierce MD [Physician, General Surgery] - 1 Week Lynn Garcia MD [Primary Care Provider, Internal Medicine] - 1 Week Discharge Medications: New docusate sodium [Colace] 100 mg capsule 100 mg PO BID PRN (Reason: constipation) Qty: 30 0RF ibuprofen 600 mg tablet 600 mg PO Q6H PRN (Reason: pain) Qty: 30 0RF Continued fluticasone propionate 50 mcg/actuation spray,suspension 2 spray intranasal DAILY PRN (Reason: seasonal allergies) albuterol sulfate 90 mcg/actuation HFA aerosol inhaler 2 puff INHALATION Q4H PRN (Reason: Respiratory Distress) biotin 1 mg Tablet 500 mcg PO DAILY Probiotic 15 billion cell Capsule 1 cap PO DAILY magnesium 250 mg Tablet 0 mg PO DAILY No Action amoxicillin-pot clavulanate 875-125 mg tablet 1 tab PO BID Qty: 14 0RF oxycodone 5 mg tablet 5 mg PO Q4H PRN (Reason: pain (scale score 7-10)) Qty: 24 0RF Rx Instructions: Partial Fill upon patient request. Discharge Orders: Discharge Order (Routine); Ordered 09/22/25 Ordered By: Jesus Bautista Diet: Advance to usual diet Activity on Discharge: No heavy lifting Stand Alone Forms: Patient Portal Discharge page Print Language: Romansh Activity Restrictions/Additional Instructions: Empty ALETHA drain twice a day and record output If the incision area is tender, you may apply an ice pack for short intervals (No more than 20 minutes on, followed by at least 20 minutes off). Do not apply heat. Do not use creams, lotions, or topical antibiotics. These can cause infection or allergic reaction. Ok to shower 24 hours after your surgery. Remove bandaids in 2 days. You have steri strips (small white strips) covering your incision- these will fall off ~1 week. Follow up in office with Dr. Pierce in next week ([phone]) No heavy lifting (>10-20lbs) or strenuous activity! Call Your Doctor If: -Your temperature exceeds 101.5? F -You experience excessive pain or swelling -You have an unexpected reaction to medication -You have excessive bleeding -You experience continued vomiting/nausea -Your incision begins to separate -Your incision shows signs of infection such as increased redness, swelling, excessive pain, drainage (light blood or clear fluid is normal) or heat Care Plan Goals: Return to baseline health and resume normal activities following recovery period. Health Concerns: acute appendicitis Plan of Treatment: s/p laparoscopic appendectomy Follow up in the office in 2 weeks ALETHA drain care Pain control Assessment: Doing well post op. Patient Instructions: Shashank-Rodriguez Drain Care (DC) Discharge Date/Time: 09/22/25 09:40
--- NOTE | 2025-09-21 16:09 | PM.EVENT ---
Event Note Date of Service: 09/21/25 Event Note: Seen on afternoon rounds continues to feel well Good pain control Tolerating diet Abdomen is soft and benign Stable vital signs, no fever ALETHA drain serosanguineous Plan to DC home tomorrow on oral antibiotics Visiting nurse arranged We will see in the office next week for removal of ALETHA drain Time Spent With Patient Time: Total time managing care of this patient today ____ minutes.
[2025-09-21 19:05] VITALS: BP 107/63; PULSE 79; RESP 18; TEMP 36.1; O2SAT 97
[2025-09-22 03:56] VITALS: BP 128/74; PULSE 59; RESP 18; TEMP 36.1; O2SAT 96
[2025-09-22 08:00] VITALS: BP 117/64; PULSE 63; RESP 16; TEMP 37; O2SAT 94
--- NOTE | 2025-09-22 09:36 | P.F2F_ITS ---
Service Date Service Date: 09/22/25 Encounter Date of encounter: 09/22/25 Encounter: Examined patient's abdomen and drain site. Reasons for Services Signs and symptoms assessed: Vital sign, ALETHA output Reason for residential: wound care (ALETHA drain care) Overseeing Care: Derrick Pierce Homebound: Leaving the home is medically contraindicated at this time without the asist of a device and/or another person due th the listed conditions above and below. Reason homebound: weakness related to hospital stay Certification: Based on the above findings, I certify that this patient is confined to the home and needs intermittent residential care, physical therapy and/or speech therapy, or continues to need occupational therapy. The patient is under my care, and I have initiated the establishment of the plan of care. The patient will be followed by a physician who will periodically review the plan of care. Time Spent With Patient Time: Total time managing care of this patient today ____ minutes.
--- NOTE | 2025-09-22 09:47 | MHC.CM.PN ---
PT TO DC HOME TODAY WITH [facility] PT TO ARRANGE TRANSPORT
--- NOTE | 2025-09-22 09:53 | P.PNGS_ITS ---
Subjective Subjective Date of Service: 09/22/25 Interval history: Overall patient feels much improved today. Abdominal pain is markedly improved. She was able to tolerate a regular diet without nausea or vomiting. She feels ready for discharge to home. Physical Exam 2 Vital Signs: Vital Signs: Last Vital Signs Temp 98.6 F 09/22/25 08:00 Pulse 63 09/22/25 08:00 Resp 16 09/22/25 08:00 BP 117/64 09/22/25 08:00 Pulse Ox 94 09/22/25 08:00 O2 Del Method Room Air 09/22/25 08:00 O2 Flow Rate 2 09/20/25 20:14 FiO2 43 09/20/25 20:14 BMI result Body Mass Index 28.6 Const: General: comfortable Nutritional Appearance: well nourished O rientation/consciousness: patient oriented x3 Limitations: no limitations Resp: Effort & Inspection: normal respiratory effort, no audible wheezes, no cough and no respiratory distress GI: Other: Soft and nondistended, trocar incisions are clean and intact. ALETHA with mainly serosanguineous output. Neuro: General: patient oriented x3 Extrem: General: Yes no clubbing, cyanosis or edema Objective Data Labs 09/21/25 06:30 09/21/25 06:30 Microbiology Microbiology Results: Microbiology 09/19/25 Unknown Urine Culture - Final Urine clean catch - Clean Catch Midstream No growth. Procedures Date of Service Date of Service: 09/22/25 Progress Note: A&P Assessment and plan (1) S/P laparoscopic appendectomy: Status: Acute Plan POD to following laparoscopic appendectomy with abscess and drainage. She is much improved today and feels ready for discharge. She will follow up with Dr. Pierce as an outpatient. She should call for increased pain, nausea, vomiting, fever, chills or other concerns. She expressed understanding and agrees with the plan. [facility] planned to assist with drain care. Time Spent With Patient Time: Total time managing care of this patient today ____ minutes. Quality Stroke Does the patient have a stroke diagnosis?: No VTE Prior VTE?: No VTE Risk Level:: Surgical - low VTE Device Contraindication: N/A - Device Ordered VTE Drug Contraindication: Treatment Not Indicated
== END 2025-09-22 09:40 | disposition home health service (06) | DRG 233 ==
LOC: HO.ED 22:15 → HO.EDOVER 22:47 → HO.S3 09-20 02:49
PROVIDERS: Physician Assistant; Surgery; Admitting Provider Surgery; Emergency Provider Emergency Medicine; PCP Internal Medicine; Visit Provider Surgery
PROC: 0DTJ4ZZ Resection of Appendix, Percutaneous Endoscopic Approach (ICD-10-PCS; CPT 44970; principal; 2025-09-20 17:00)
DX: K35.32 Acute appendicitis with perforation, localized peritonitis, and gangrene, without abscess (principal); Z79.899 Other long term (current) drug therapy
CPT/HCPCS: 36415; 74177; 80048; 80053; 81001; 81003; 81025; 83690; 84702; 85025; 85027; 85610; 86850; 86900; 86901; 87086; 88304; 93005; 99285; J0131; J2003; J2270; J2405; J2543; J2704; J2795; J3010; J7120; Q9967

== ENCOUNTER → 2025-09-19 20:40 | Outpatient (BNV) | payer BC, SELFPAY | PROVIDERS: Admitting Provider Surgery; Emergency Provider Emergency Medicine; PCP Internal Medicine; Visit Provider Radiology Diagnostic Radiology | DX: K35.80 Unspecified acute appendicitis (principal); K76.0 Fatty (change of) liver, not elsewhere classified | CPT/HCPCS: 74177 ==

== ENCOUNTER → 2025-09-19 22:14 | Outpatient (BNV) | payer BC, SELFPAY | PROVIDERS: Admitting Provider Surgery; Emergency Provider Emergency Medicine; PCP Internal Medicine; Visit Provider Internal Medicine Cardiovascular Disease | DX: Z01.810 Encounter for preprocedural cardiovascular examination (principal) | CPT/HCPCS: 93010 ==

== ENCOUNTER → 2025-09-19 22:30 | Outpatient (BNV) | payer BC, SELFPAY | PROVIDERS: Admitting Provider Surgery; Emergency Provider Emergency Medicine; PCP Internal Medicine; Visit Provider Physician Assistant Surgical | DX: K35.80 Unspecified acute appendicitis (principal) | CPT/HCPCS: 99222; 99499 ==

== ENCOUNTER 2025-09-27 10:31 | Outpatient (AMB) | payer BC, SELFPAY ==
--- NOTE | 2025-09-27 10:33 | A.OFFVIS_ITS ---
Vital Signs 09/27/25 10:44 Height 5 ft Weight 138 lb 2 oz BMI 27.0 BP 133/80 Blood Pressure Location Rt brachial Position Standing Pulse 90 Intake Visit Reasons: s/p lap appy, ALETHA drain Intake Note: Patient presents for a post-op assessment status post Laparoscopic appendectomy, placement of ALETHA drain.(09/20/2025) Pt c/o; repotrs no complaints at this time, 09/27/2025 output 800am 15 mL. 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 I left a drain in place because of significant purulent fluid in the pelvis and surrounding the appendix. The appendix was also gangrenous on pathology She currently seems to be doing well. She has good oral intake. She denies any fever or chills. She has a very minimal output from her ALETHA drain. [facility] Medical History Carpal tunnel syndrome of right wrist Surgical History History of laparoscopic appendectomy (~09/20/25) Social History Household Members: Spouse Housing: House Do you presently have visiting nurse or other home services: No Alcohol intake: current Alcohol intake frequency: holidays/special occasions only Comment: Mehreen BOWMAN Patient Tobacco Use Status: Never used Tobacco service: No Current occupational status: employed Current occupation: rt hand/ packing Review of Systems Const Denies chills and Denies fever(s) Card Denies chest pain at rest Resp Denies cough GI Denies abdominal pain and Denies vomiting Physical Exam Const General: comfortable and no acute distress Resp Effort & Inspection: normal respiratory effort GI Other: ALETHA drain in place, very scanty clear output; all incisions are well healed Palpation (GI): Soft to palpation, not firm and no guarding Assessment & Plan Assessment & Plan (1) S/P laparoscopic appendectomy: Code(s): Z90.49 - Acquired absence of other specified parts of digestive tract Category: Surgical Plan: She seemed to be doing well postoperatively. I removed her ALETHA drain and this was intact. All incisions are well healing. I advised her to avoid lifting anything more than 20 lb for about 3 more weeks. She can otherwise follow up with me on a p.r.n. basis. Her path report shows gangrenous appendicitis. Coding Level of Care Code Global (02292) Diagnoses S/P laparoscopic appendectomy Z90.49
[2025-09-27 10:44] VITALS: BP 133/80; PULSE 90; BMI 27.0
--- OUTSIDE RECORDS SUMMARY | 2025-09-27 12:54 | XMS_ITS | Encounter Summary ---
Author Organization [employer] Address [address] [place] [address] Care Team Providers Care Travel Physical Therapist Name Role Phone Lynn Garcia MD Primary Care Provider [phone] Reason for Visit * Reason Onset Date Comments Hospital Follow-up 09/24/2025 Encounter Details Date Type Department Care Team ([facility] st Contact Info) Description 09/24/2025 Telephone Adult Medicine [address] [phone] [place] Levy LPN Social History Tobacco Use Types Packs/Day Years Used Date Smoking Tobacco: Former Cigarettes 0 Q uit: 05/15/2008 Smokeless Tobacco: Former Alcohol Use Standard Drinks/Week Comments Yes 0 [...] for your loved ones. For example, child psychology teacher or elderly care for an older adult? [...] PM EST Sexual Orientation Not on file documented as of this encounter Progress Notes * Hilda Giles RN - 09/24/2025 12:00 PM EST Called pt following up with surgeon on hosp fu with pcp for 09/28 * [place] Levy LPN - 09/24/2025 11:53 AM EST Spoke with Kaylen at [facility] read her the message from Dr. Garcia she said they will get the orders from the surgeon Please book a hospital follow up * Lynn Garcia MD - 09/24/2025 9:50 AM EST Ok for verbal orders; needs to be seen for signed orders * [place] Levy LPN - 09/24/2025 9:37 AM EST A is requesting VO for PT, OT and nursing. Please review and advise. Thank you Please send response to nurse triage [facility] 07/09/25 Please book a hospital follow up documented in this encounter Plan of Treatment Upcoming Encounters Date Type Department Care Team (Late st Contact Info) Description 09/28/2025 10:30 AM EST Office Visit Adult Medicine [address] [phone] Lynn Garcia MD [address] [place] [address] documented as of this encounter Visit Diagnoses Not on filedocumented in this encounter Additional Health Concerns Assessment Noted Time PHQ-9 Depression Total Score: 0 01/31/20 25 6:09 PM EDT documented as of this encounter Care Teams Travel Physical Therapist Relationship Specialty Start Date End Date Lynn Garcia MD [address] [place] [address] PCP - General Internal Medicine 06/09/21 documented as of this encounter
--- OUTSIDE RECORDS SUMMARY | 2025-09-27 12:54 | XMS_ITS | Clinical Summary ---
Author Organization [facility] Address [address] [id number] Phone Care Team Providers Care Adjunct Instructor Of Women'S Studies Name Role Phone Unavailable Primary Care Provider [...] patient's age to complete this topic IPV VACCINES Aged Out No longer eligi ble [...] It is not the complete legal health record.[facility]
--- OUTSIDE RECORDS SUMMARY | 2025-09-27 12:54 | XMS_ITS | Clinical Summary ---
Author Organization [facility] [address] [place] [address] Address [address] [place], [place] Phone Care Team Providers Care Wallpaper Scraper Name Role Phone Wesley Garcia MD Primary Care Provider Allergies No known active allergies Medications albuterol [...] Encounters Date Type Department Care Team Description 09/24/2025 Telephone Adult Medicine [address] [phone] [place] Levy LPN 07/10/2025 10:30 AM EDT Office Visit Adult Medicine [address] [phone] Wesley Garcia MD Neck pain (Primary Dx); [...] 0 Q uit: 05/15/2008 Smokeless Tobacco: Former Tobacco [...] do you feel lonely or isolated from ose around you? Never 01/30/2025 Food Risk [...] for your loved ones. For example, child support case officer or elderly care for an older adult? [...] 10:30 AM EST Office Visit Adult Medicine [facility] [address] [place], [place] [phone] Wesley Garcia MD [address] [place], [place] Health Maintenance Due Date Last Done Comments [...] Procedure Name Priority Date/Time Associated Diagnosis Comments [facility] SCREENING DIGITAL Routine 07/07/2024 3:10 PM EDT Encounter for screening mammogram for malignant neoplasm of breast from Last 3 Months or Most Recently Relevant to Health Maintenance Results * [facility] SCREENING DIGITAL (07/07/2024 3:10 PM EDT) Anatomical Region Laterality Modality Mammography 07/07/2024 1:40 PM EDT Narrative 07/07/2024 3:10 PM EDT [facility] Diagnostic Imaging Department [address] [place] [address] Patient: SAUMYA KEN /Age/Sex: 1975 - 48 - F Unit#: [id number] [facility] Order[facility] Physician: WESLEY GARCIA MD [facility] Screening Digital - 07/07/24 - [id number] Report Status:Signed EXAM: [facility] Screening Digital EXAM DATE AND TIME: 07/07/2024 2:00 PM HISTORY: Screening. 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 COMPARISON: 04/27/22, 02/27/22, 02/06/22, 02/05/22, 11/05/20, 01/13/19, 12/10/17 TECHNIQUE: Bilateral digital breast tomosynthesis was performed in the CC and MLO projections. Computer aided detection with [employer] 3D 3.1 was employed. TISSUE DENSITY: b. [...] Procedure Note Lesia Bolden MD - 08/30/2024 [facility] Diagnostic Imaging Department [address] [place] [id number] Patient: JESUS MANUELSAUMYA /Age/Sex: 1975 - 48 - F Unit#: [id number] Location/Status: [facility]/REG CLI Mnemonic/Ordering Site: [facility] Ordering Physician: WESLEY GARCIA MD [facility] Screening Digital - 07/07/24 - [id number] Report Status:Signed EXAM: [facility] Screening Digital EXAM DATE AND TIME: 07/07/2024 2:00 PM HISTORY: Screening. Excisional biopsy of the right breast in 2021yielding pseudoangiomatous stromal hyperplasia (PASH). COMPARISON: 04/27/22, 02/27/22, 02/06/22, 02/05/22, 11/05/20, 01/13/19,12/10/17 TECHNIQUE: Bilateral digital breast tomosynthesis was performed in the CCand MLO projections. Computer aided detection with [email or web address] 3D 3.1was employed. TISSUE DENSITY: b. There [...] Most Recently Relevant to Health Maintenance Insurance [facility] Care Teams Wallpaper Scraper Relationship Specialty Start Date End Date Wesley Garcia MD [address] [place] [address] PCP - General Internal Medicine 06/09/21
== END 2025-09-27 10:58 | disposition home or self-care (01) ==
LOC: HO.HGS 10:32
PROVIDERS: PCP Internal Medicine; Visit Provider Surgery
DX: Z90.49 Acquired absence of other specified parts of digestive tract (principal)
CPT/HCPCS: 99024